=== PATIENT | male | born 1965 | race Caucasian/White ===

== ENCOUNTER → 2016-12-31 | Outpatient (REF) | payer BC ==
[~2016-12-31] MED LIST: PERC5TAB6 PO; TAMS0.4C2 PO
== END ==
LOC: M SFHCLERA 09:38
PROVIDERS: ATTEND Nurse Practitioner Family
DX: R53.81 Other malaise (principal)

== ENCOUNTER → 2017-06-18 | Outpatient (REF) | payer BC ==
[~2017-06-18] MED LIST changes: +PERC5TAB12 PO; -PERC5TAB6 PO
[2017-06-18 12:03] LABS: MEAN CORPUSCULAR HEMOGLOBIN 32.8 pg (27.0-33.0); MEAN CORPUSCULAR HGB CONC 34.4 g/dl (32.0-36.5); MEAN CORPUSCULAR VOLUME 95.4 fl (80.0-96.0); RED CELL DISTRIBUTION WIDTH 12.5 % (11.5-14.5); WHITE BLOOD COUNT 7.8 K/mm3 (4.0-10.0)
[2017-06-18 12:16] LABS: ALBUMIN 3.6 GM/DL (3.2-5.2); ALBUMIN/GLOBULIN RATIO 1.03 (1.00-1.93); ALKALINE PHOSPHATASE 87 U/L (45-117); ALT/SGPT 25 U/L (12-78); ANION GAP 9 MEQ/L (8-16); AST/SGOT 21 U/L (15-37); BILIRUBIN,TOTAL 0.7 MG/DL (0.2-1.0); BLOOD UREA NITROGEN 18 MG/DL (7-18); CALCIUM LEVEL 8.3 MG/DL (8.5-10.1); CARBON DIOXIDE LEVEL 26 MEQ/L (21-32); CHLORIDE LEVEL 106 MEQ/L (98-107); CHOLESTEROL LEVEL 164 MG/DL (<200); CREATININE FOR GFR 0.81 MG/DL (0.70-1.30); FREE T4 1.19 NG/DL (0.76-1.46); GLOMERULAR FILTRATION RATE > 60.0 (>56); GLUCOSE, FASTING 94 MG/DL (70-105); POTASSIUM SERUM 4.6 MEQ/L (3.5-5.1); SODIUM LEVEL 141 MEQ/L (136-145); TOTAL PROTEIN 7.1 GM/DL (6.4-8.2); TRIGLYCERIDES LEVEL 53 MG/DL (<150)
== END ==
LOC: M SFHCLERA 08:19
PROVIDERS: ATTEND Family Medicine
DX: R53.83 Other fatigue (principal); Z13.1 Encounter for screening for diabetes mellitus; Z13.220 Encounter for screening for lipoid disorders; Z12.5 Encounter for screening for malignant neoplasm of prostate
CPT/HCPCS: 80053; 80061; 83036; 84439; 84443; 85027; G0103

== ENCOUNTER 2017-08-24 09:11 | Outpatient (CLI) | payer BC ==
[~2017-08-24] VITALS: Ht 175.3 cm; Wt 90.7 kg
[2017-08-24] MEDS ORDERED: NS 1,000 ML IV SCH (10:15)
[2017-08-24] MEDS ORDERED: PROPOFOL 200 MG/20 ML VIAL As Ordered ONE ×2 (11:05→11:08)
--- NOTE | 2017-08-24 11:22 | ROOR ---
Patient Name: Florin Spivey Procedure Date: 08/24/2017 10:57 AM Date of : 1965 Age: 51 Room: [facility] Gender: Male Note Status: Finalized Procedure: Colonoscopy Indications: Screening for colorectal malignant neoplasm Providers: Trae Marrero MD Referring MD: Jeniffer MCLEAN MD Requesting Provider: Medicines: Monitored Anesthesia Care Complications: No immediate complications. Procedure: Pre-Anesthesia Assessment: - Prior to the procedure, a History and Physical was performed, and patient medications and allergies were reviewed. The patient is competent. The risks and benefits of the procedure and the sedation options and risks were discussed with the patient. All questions were answered and informed consent was obtained. Patient identification and proposed procedure were verified by the physician, the nurse and the gimp tacker in the procedure room. Mental Status Examination: alert and oriented. Airway Examination: normal oropharyngeal airway and neck mobility. Respiratory Examination: clear to auscultation. CV Examination: normal. Prophylactic Antibiotics: The patient does not require prophylactic antibiotics. Prior Anticoagulants: The patient has taken no previous anticoagulant or antiplatelet agents. ASA Grade Assessment: I - A normal, healthy patient. After reviewing the risks and benefits, the patient was deemed in satisfactory condition to undergo the procedure. The anesthesia plan was to use monitored anesthesia care (MAC). Immediately prior to administration of medications, the patient was re-assessed for adequacy to receive sedatives. The heart rate, respiratory rate, oxygen saturations, blood pressure, adequacy of pulmonary ventilation, and response to care were monitored throughout the procedure. The physical status of the patient was re-assessed after the procedure. The Colonoscope was introduced through the anus and advanced to the terminal ileum, with identification of the appendiceal orifice and IC valve. The colonoscopy was performed without difficulty. The patient tolerated the procedure well. The quality of the bowel preparation was good. The terminal ileum, ileocecal valve, appendiceal orifice, and rectum were photographed. Scope insertion time was 2 minutes. Scope withdrawal time was 10 minutes. The total duration of the procedure was 14 minutes. Findings: The perianal and digital rectal examinations were normal. The terminal ileum appeared normal. Two sessile polyps were found in the transverse colon. The polyps were 3 to 4 mm in size. These polyps were removed with a jumbo cold forceps. Resection and retrieval were complete. Verification of patient identification for the specimen was done by the physician and nurse using the patient's name, date and medical record number. Estimated blood loss was minimal. Non-bleeding external and internal hemorrhoids were found during retroflexion. The hemorrhoids were medium-sized. Impression: - The examined portion of the ileum was normal. - Two 3 to 4 mm polyps in the transverse colon, removed with a jumbo cold forceps. Resected and retrieved. - Non-bleeding external and internal hemorrhoids. Recommendation: - Patient has a contact number available for emergencies. The signs and symptoms of potential delayed complications were discussed with the patient. Return to normal activities tomorrow. Written discharge instructions were provided to the patient. - Resume previous diet. - Continue present medications. - Await pathology results. - Repeat colonoscopy in 5-10 years for surveillance based on pathology results. - Telephone GI clinic for pathology results in 1 week. - Return to primary care physician. rTae Marrero MD Trae Marrero MD 08/24/2017 11:22:32 AM This report has been signed electronically. Number of Addenda: 0 Note Initiated On: 08/24/2017 10:57 AM Estimated Blood Loss: Estimated blood loss was minimal.
[2017-08-24 11:49] VITALS: BP 116/76
== END 2017-08-24 11:50 | disposition home or self-care (01) ==
LOC: M OPP 09:11
PROVIDERS: ATTEND Internal Medicine Gastroenterology
DX: Z12.11 Encounter for screening for malignant neoplasm of colon (principal); K63.5 Polyp of colon; K64.8 Other hemorrhoids; K64.4 Residual hemorrhoidal skin tags; Z87.442 Personal history of urinary calculi; Z80.0 Family history of malignant neoplasm of digestive organs; Z80.42 Family history of malignant neoplasm of prostate

== ENCOUNTER → 2017-12-20 | Outpatient (REF) | payer BC ==
[2017-12-20 13:43] LABS: INFLUENZA A AMPLIFICATION POSITIVE (NEGATIVE); INFLUENZA B AMPLIFICATION NEGATIVE (NEGATIVE)
== END ==
LOC: M SFHCLERA 09:26
DX: J02.9 Acute pharyngitis, unspecified (principal)
CPT/HCPCS: 87502

== ENCOUNTER → 2018-12-17 | Outpatient (REF) | payer BC ==
[2018-12-17 12:09] LABS: BASO % 0.2 % (0.0-1.0); EOS # 0.1 10^3/uL (0.0-0.50); EOS % 1.4 % (0.0-3.0); HEMATOCRIT 43.6 % (42.0-52.0); HEMOGLOBIN 15.2 g/dl (13.5-17.5); LYMPH # 1.6 10^3/uL (1.5-4.5); LYMPH % 17.8 % (24.0-44.0); MEAN CORPUSCULAR HEMOGLOBIN 32.9 pg (27.0-33.0); MEAN CORPUSCULAR HGB CONC 34.9 g/dl (32.0-36.5); MEAN CORPUSCULAR VOLUME 94.4 fl (80.0-96.0); MONO # 0.8 10^3/uL (0.0-0.8); MONO % 8.7 % (0.0-5.0); NEUTROPHILS # 6.2 10^3/uL (1.8-7.7); NEUTROPHILS % 71.6 % (36.0-66.0); PLATELET COUNT, AUTOMATED 242 10^3/uL (150-450); RED BLOOD COUNT 4.62 10^6/uL (4.30-6.10); WHITE BLOOD COUNT 8.7 10^3/uL (4.0-10.0)
[2018-12-17 12:24] LABS: ALBUMIN 3.8 GM/DL (3.2-5.2); ALT/SGPT 36 U/L (12-78); BILIRUBIN,TOTAL 0.7 MG/DL (0.2-1.0); BLOOD UREA NITROGEN 21 MG/DL (7-18); CALCIUM LEVEL 9.1 MG/DL (8.5-10.1); CARBON DIOXIDE LEVEL 29 MEQ/L (21-32); CHLORIDE LEVEL 105 MEQ/L (98-107); CREATININE FOR GFR 0.95 MG/DL (0.70-1.30); GLOMERULAR FILTRATION RATE > 60.0 (>56); GLUCOSE, FASTING 97 MG/DL (70-100); POTASSIUM SERUM 4.3 MEQ/L (3.5-5.1); SODIUM LEVEL 140 MEQ/L (136-145); TOTAL PROTEIN 7.1 GM/DL (6.4-8.2)
[2018-12-17 22:29] LABS: CHLAMYDIA DNA AMPLIFICATION NEGATIVE (NEGATIVE); GC DNA AMPLIFICATION NEGATIVE (NEGATIVE)
== END ==
LOC: M SFHCLERA 09:58
PROVIDERS: ATTEND Nurse Practitioner Family
DX: R30.0 Dysuria (principal)
CPT/HCPCS: 80053; 85025; 87086; 87491; 87591; G0103

== ENCOUNTER → 2018-12-24 | Outpatient (REF) | payer BC ==
[2018-12-24 11:49] LABS: APPEARANCE, URINE CLEAR (CLEAR); BACTERIA, URINE AUTO NEGATIVE (NEGATIVE); BILIRUBIN, URINE AUTO NEGATIVE (NEGATIVE); BLOOD, URINE BLOOD 1+ (NEGATIVE); COLOR, URINE YELLOW (YELLOW); GLUCOSE, URINE (UA) AUTO NEGATIVE (NEGATIVE); KETONE, URINE AUTO NEGATIVE (NEGATIVE); LEUKOCYTE ESTERASE, URINE AUTO NEGATIVE (NEGATIVE); MUCUS, URINE SMALL (NEGATIVE); NITRITE, URINE AUTO NEGATIVE (NEGATIVE); PROTEIN, URINE AUTO NEGATIVE (NEGATIVE); RBC, URINE AUTO 1 /HPF (0-3); SPECIFIC GRAVITY URINE AUTO 1.024 (1.002-1.035); SQUAMOUS EPITHELIAL CELL UR AU 0 /HPF (0-6); UROBILINOGEN, URINE AUTO 0.2 mg/dL (0.0-2.0); WBC, URINE AUTO 1 /HPF (0-3)
== END ==
LOC: M SFHCLERA 09:00
PROVIDERS: ATTEND Family Medicine
DX: N41.9 Inflammatory disease of prostate, unspecified (principal)

== ENCOUNTER → 2019-03-18 | Outpatient (REF) | payer BC ==
[2019-03-18 11:26] LABS: BASO % 0.3 % (0.0-1.0); EOS # 0.1 10^3/uL (0.0-0.50); EOS % 0.7 % (0.0-3.0); HEMATOCRIT 43.4 % (42.0-52.0); LYMPH # 1.8 10^3/uL (1.5-4.5); LYMPH % 18.7 % (24.0-44.0); MEAN CORPUSCULAR HEMOGLOBIN 32.3 pg (27.0-33.0); MEAN CORPUSCULAR HGB CONC 34.6 g/dl (32.0-36.5); MEAN CORPUSCULAR VOLUME 93.3 fl (80.0-96.0); MONO # 0.9 10^3/uL (0.0-0.8); MONO % 9.1 % (0.0-5.0); NEUTROPHILS # 6.7 10^3/uL (1.8-7.7); NEUTROPHILS % 70.9 % (36.0-66.0); PLATELET COUNT, AUTOMATED 232 10^3/uL (150-450); RED BLOOD COUNT 4.65 10^6/uL (4.30-6.10); WHITE BLOOD COUNT 9.5 10^3/uL (4.0-10.0)
[2019-03-18 11:52] LABS: ERYTHROCYTE SEDIMENTATION RATE 16 mm/hr (0-20)
[2019-03-18 12:01] LABS: ALBUMIN 4.1 GM/DL (3.2-5.2); ALT/SGPT 28 U/L (12-78); BILIRUBIN,TOTAL 0.9 MG/DL (0.2-1.0); BLOOD UREA NITROGEN 27 MG/DL (7-18); C REACTIVE PROTEIN QUANTITATIV 0.49 MG/DL (0.00-0.30); CALCIUM LEVEL 9.1 MG/DL (8.5-10.1); CARBON DIOXIDE LEVEL 26 MEQ/L (21-32); CHLORIDE LEVEL 110 MEQ/L (98-107); CREATININE FOR GFR 1.05 MG/DL (0.70-1.30); GLOMERULAR FILTRATION RATE > 60.0 (>56); GLUCOSE, FASTING 101 MG/DL (70-100); POTASSIUM SERUM 4.2 MEQ/L (3.5-5.1); SODIUM LEVEL 142 MEQ/L (136-145); TOTAL PROTEIN 7.4 GM/DL (6.4-8.2)
[2019-03-18 12:06] LABS: FOLATE 20.6 NG/ML; VITAMIN B12 LEVEL 642 PG/ML
[2019-03-21 00:07] LABS: Lyme Disease IgG Ab 18 kDa Ban Absent (.); Lyme Disease IgG Ab 23 kDa Ban Absent (.); Lyme Disease IgG Ab 28 kDa Ban Absent (.); Lyme Disease IgG Ab 30 kDa Ban Absent (.); Lyme Disease IgG Ab 39 kDa Ban Absent (.); Lyme Disease IgG Ab 41 kDa Ban Absent (.); Lyme Disease IgG Ab 45 kDa Ban Absent (.); Lyme Disease IgG Ab 58 kDa Ban Absent (.); Lyme Disease IgG Ab 66 kDa Ban Absent (.); Lyme Disease IgG Ab 93 kDa Ban Absent (.); Lyme Disease IgG West Blot Int Negative (.); Lyme Disease IgG/IgM Antibodie 1.16 ISR (0.00-0.90); Lyme Disease IgM Ab 23 kDa Ban Present (.); Lyme Disease IgM Ab 39 kDa Ban Present (.); Lyme Disease IgM Ab 41 kDa Ban Absent (.); Lyme Disease IgM Ab Quantitati <0.80 index (0.00-0.79); Lyme Disease IgM West Blot Int Positive (.)
== END ==
LOC: M SFHCLERA 09:58
PROVIDERS: ATTEND Family Medicine
DX: G62.9 Polyneuropathy, unspecified (principal)

== ENCOUNTER → 2019-06-13 | Outpatient (REF) | payer BC ==
[2019-06-15 00:06] LABS: Lyme Disease IgG/IgM Antibodie <0.91 ISR (0.00-0.90); Lyme Disease IgM Ab Quantitati <0.80 index (0.00-0.79)
== END ==
LOC: M SFHCLERA 08:45
PROVIDERS: ATTEND Nurse Practitioner Family
DX: A69.20 Lyme disease, unspecified (principal)

== ENCOUNTER → 2019-11-25 | Outpatient (REF) | payer BC ==
[2019-11-25 12:10] LABS: ALBUMIN 3.7 GM/DL (3.2-5.2); ALT/SGPT 26 U/L (12-78); BILIRUBIN,TOTAL 0.7 MG/DL (0.2-1.0); BLOOD UREA NITROGEN 19 MG/DL (7-18); C REACTIVE PROTEIN QUANTITATIV < 0.30 MG/DL (0.00-0.30); CALCIUM LEVEL 8.8 MG/DL (8.5-10.1); CARBON DIOXIDE LEVEL 27 MEQ/L (21-32); CHLORIDE LEVEL 109 MEQ/L (98-107); CREATININE FOR GFR 0.85 MG/DL (0.70-1.30); FREE T4 1.16 NG/DL (0.76-1.46); GLOMERULAR FILTRATION RATE > 60.0 (>56); GLUCOSE, FASTING 96 MG/DL (70-100); POTASSIUM SERUM 4.5 MEQ/L (3.5-5.1); SODIUM LEVEL 142 MEQ/L (136-145); TOTAL PROTEIN 7.4 GM/DL (6.4-8.2)
[2019-11-25 14:38] LABS: HEMOGLOBIN A1c 5.5 %
[2019-11-27 00:08] LABS: ANA (HEP2) Negative (.); Lyme Disease IgG/IgM Antibodie <0.91 ISR (0.00-0.90); Lyme Disease IgM Ab Quantitati <0.80 index (0.00-0.79)
[2019-11-27 12:00] LABS: ALBUMIN % 55.4 % (55.8-66.1); ALPHA-1-GLOBULIN % 4.3 % (2.9-4.9); ALPHA-1-GLOBULINS 0.32 GM/DL (0.17-0.41); ALPHA-2-GLOBULINS 0.84 GM/DL (0.42-0.99); ALPHA-2-GLOBULINS % 11.3 % (7.1-11.8); BETA-1-GLOBULINS 0.41 GM/DL (0.28-0.60); BETA-1-GLOBULINS % 5.6 % (4.7-7.2); BETA-2-GLOBULINS 0.51 GM/DL (0.19-0.55); BETA-2-GLOBULINS % 6.9 % (3.2-6.5); GAMMA GLOBULIN % 16.5 % (11.1-18.8); GAMMA GLOBULINS 1.22 GM/DL (0.65-1.58)
== END ==
LOC: M SFHCLERA 08:30
PROVIDERS: ATTEND Family Medicine
DX: R20.2 Paresthesia of skin (principal); N40.0 Benign prostatic hyperplasia without lower urinary tract symptoms

== ENCOUNTER → 2019-12-05 | Outpatient (CLI) | payer BC ==
[2019-12-05 18:16] LABS: RHEUMATOID FACTOR QUANT < 10.0 IU/ML (<15.0)
[2019-12-05 18:17] LABS: FOLATE 17.6 NG/ML (>5.4)
[2019-12-05 18:27] LABS: VITAMIN B12 LEVEL 733 PG/ML (247-911)
[2019-12-09 08:06] LABS: IgG P18 AB Absent (.); IgG P23 AB Absent (.); IgG P28 AB Absent (.); IgG P30 AB Absent (.); IgG P39 AB Absent (.); IgG P41 AB Absent (.); IgG P45 AB Absent (.); IgG P66 AB Absent (.); IgG P93 AB Absent (.); IgM P23 AB Present (.); IgM P39 AB Present (.); IgM P41 AB Absent (.); LYME IgG WB INTERPRETATION Negative (.); LYME IgM WB INTERPRETATION Positive (.)
[2019-12-09 11:00] LABS: DRVV SCREEN 40.6 SEC
[2019-12-09 11:09] LABS: PTT LUPUS TYPE ANTICOAG SCREEN 1.1 (0-1.2)
== END ==
LOC: M LRY 11:02
PROVIDERS: ATTEND Psychiatry & Neurology Neurology
DX: M54.2 Cervicalgia (principal); M54.5 Low back pain; R20.0 Anesthesia of skin

== ENCOUNTER → 2019-12-17 | Outpatient (CLI) | payer BC | LOC: M LRY 08:03 | PROVIDERS: ATTEND Family Medicine | DX: G57.12 Meralgia paresthetica, left lower limb (principal); Z53.9 Procedure and treatment not carried out, unspecified reason ==

== ENCOUNTER → 2020-12-21 | Outpatient (REF) | payer BC | LOC: M SFHCLERA 08:50 | PROVIDERS: ATTEND Nurse Practitioner Family | DX: R10.9 Unspecified abdominal pain (principal) ==

== ENCOUNTER → 2020-12-21 | Outpatient (CLI) | payer BC ==
--- NOTE | 2020-12-21 09:56 | REP ---
INDICATION: RIGHT FLANK PAIN AND BURNING COMPARISON: None. TECHNIQUE: AP, lateral, and swimmers views. FINDINGS: Alignment and kyphosis is maintained. Vertebral bodies intact. No acute fracture / compression injury or subluxation. Osteopenia and mild age-related changes are suggested including minimal disc space narrowing and subtle scattered marginal spurring. IMPRESSION: Mild osteopenia and age-related changes. No acute fracture/compression injury or subluxation. <Electronically signed by Kelechi Fabian > 12/21/20 0953
[2020-12-21 13:47] LABS: ALBUMIN 3.8 GM/DL (3.2-5.2); ALT/SGPT 26 U/L (12-78); BILIRUBIN,TOTAL 1.2 MG/DL (0.2-1.0); BLOOD UREA NITROGEN 19 MG/DL (7-18); CALCIUM LEVEL 9.2 MG/DL (8.5-10.1); CARBON DIOXIDE LEVEL 30 MEQ/L (21-32); CHLORIDE LEVEL 108 MEQ/L (98-107); CREATININE FOR GFR 0.93 MG/DL (0.70-1.30); GLOMERULAR FILTRATION RATE > 60.0 (>56); GLUCOSE, FASTING 92 MG/DL (70-100); POTASSIUM SERUM 4.1 MEQ/L (3.5-5.1); SODIUM LEVEL 144 MEQ/L (136-145); TOTAL PROTEIN 7.6 GM/DL (6.4-8.2)
[2020-12-21 15:25] LABS: BASO % 0.4 % (0.0-1.0); EOS # 0.1 10^3/uL (0.0-0.5); HEMATOCRIT 46.9 % (42.0-52.0); HEMOGLOBIN 15.2 g/dl (13.5-17.5); LYMPH # 1.5 10^3/uL (1.5-5.0); LYMPH % 20.9 % (24.0-44.0); MEAN CORPUSCULAR HEMOGLOBIN 31.4 pg (27.0-33.0); MEAN CORPUSCULAR HGB CONC 32.4 g/dl (32.0-36.5); MEAN CORPUSCULAR VOLUME 96.9 fl (80.0-96.0); MONO # 0.6 10^3/uL (0.0-0.8); NEUTROPHILS # 5.1 10^3/uL (1.5-8.5); NEUTROPHILS % 69.4 % (36.0-66.0); PLATELET COUNT, AUTOMATED 228 10^3/uL (150-450); RED BLOOD COUNT 4.84 10^6/uL (4.30-6.10); WHITE BLOOD COUNT 7.4 10^3/uL (4.0-10.0)
== END ==
LOC: M WUC 09:29
PROVIDERS: ATTEND Nurse Practitioner Family
DX: R31.9 Hematuria, unspecified (principal); R10.9 Unspecified abdominal pain; M85.88 Other specified disorders of bone density and structure, other site
CPT/HCPCS: 36415; 72072; 80053; 85025; G0103

== ENCOUNTER → 2020-12-22 | Outpatient (CLI) | payer BC ==
--- NOTE | 2020-12-22 08:08 | REP ---
INDICATION: FLANK PAIN, HEMATURIA COMPARISON: None TECHNIQUE: Real time santiago scale ultrasound examination using curved array transducer. FINDINGS: Kidneys are normal in reniform shape and demonstrate increased central sinus fat. Small nonobstructing intrarenal calculi and or renovascular calcifications cannot be excluded or differentiated. No hydronephrosis or obvious large nephroliths. No cystic or renal mass lesion. Right kidney measures 12.4 x 7.0 x 5.8 cm. Left kidney measures 11.8 x 5.7 x 6.0 cm. Bladder is unremarkable. IMPRESSION: 1. Cannot exclude small intrarenal calculi versus renal vascular calcifications. 2. No hydronephrosis or obvious significant nephroliths identified. <Electronically signed by Kelechi Fabian > 12/22/20 0818
== END ==
LOC: M RAD 06:33
PROVIDERS: ATTEND Nurse Practitioner Family
DX: R10.9 Unspecified abdominal pain (principal); R31.9 Hematuria, unspecified

== ENCOUNTER → 2020-12-28 | Outpatient (REF) | payer BC ==
[2020-12-29 16:12] LABS: APPEARANCE, URINE CLEAR (CLEAR); BACTERIA, URINE AUTO NEGATIVE (NEGATIVE); BILIRUBIN, URINE AUTO NEGATIVE (NEGATIVE); BLOOD, URINE BLOOD NEGATIVE (NEGATIVE); COLOR, URINE YELLOW (YELLOW); GLUCOSE, URINE (UA) AUTO NEGATIVE (NEGATIVE); KETONE, URINE AUTO NEGATIVE (NEGATIVE); LEUKOCYTE ESTERASE, URINE AUTO NEGATIVE (NEGATIVE); MUCUS, URINE SMALL (NEGATIVE); NITRITE, URINE AUTO NEGATIVE (NEGATIVE); PROTEIN, URINE AUTO NEGATIVE (NEGATIVE); RBC, URINE AUTO 2 /HPF (0-3); SPECIFIC GRAVITY URINE AUTO 1.012 (1.002-1.035); SQUAMOUS EPITHELIAL CELL UR AU 0 /HPF (0-6); UROBILINOGEN, URINE AUTO 0.2 mg/dL (0.0-2.0); WBC, URINE AUTO 0 /HPF (0-3)
== END ==
LOC: M SFHCLERA 15:31
PROVIDERS: ATTEND Family Medicine
DX: R31.1 Benign essential microscopic hematuria (principal)

== ENCOUNTER → 2021-01-19 | Outpatient (CLI) | payer BC ==
--- NOTE | 2021-01-19 11:00 | REP ---
INDICATION: SOB, TENDINITIS OF RIGHT ROTATOR CUFF COMPARISON: None. TECHNIQUE: PA and lateral. FINDINGS: The mediastinum and cardiac silhouette are normal. The lung ayon are clear and without acute consolidation, effusion, or pneumothorax. The skeletal structures are intact and normal. IMPRESSION: No acute cardiopulmonary process. <Electronically signed by Kelechi Fabian > 01/19/21 1059
--- NOTE | 2021-01-19 11:01 | REP ---
INDICATION: SOB, TENDINITIS OF RIGHT ROTATOR CUFF COMPARISON: None. TECHNIQUE: Internal rotation, external rotation, and Y view. FINDINGS: There is generalized osteopenia and advanced degenerative changes primarily involving the proximal humerus and glenoid rim. Acute versus chronic fracture at the proximal humeral surgical neck and/or bulky osteophyte cannot be differentiated and should be correlated clinically. IMPRESSION: Generalized osteopenia and advanced degenerative changes to the glenohumeral joint. Possible acute versus old fracture through the humeral metaphysis/surgical neck requires correlation. <Electronically signed by Kelechi Fabian > 01/19/21 6850
== END ==
LOC: M WUC 10:20
PROVIDERS: ATTEND Family Medicine
DX: M19.011 Primary osteoarthritis, right shoulder (principal); R06.02 Shortness of breath

== ENCOUNTER → 2021-02-09 | Outpatient (CLI) | payer BC ==
--- NOTE | 2021-02-09 15:07 | PFTRPT ---
Height: 69.00 Inches Weight: 210.00 Lbs BSA: 2.11 Diagnosis: R06.02 DATE: 02/09/2021 ORDERING PHYSICIAN: Jeniffer Mckay MD Pre and post bronchodilator studies have excellent technical quality. Forced vital capacity is normal. FEV1 is in proportion. Obstructive index is therefore normal. Expiratory limit of the flow-volume loop is normal. No significant bronchodilator response is identified. Total lung capacity is normal. Residual volume is in proportion. Diffusing capacity is normal. No hemoglobin available for correction. Airway resistance and conductance are normal. IMPRESSION: Essentially normal study. MTDD
== END ==
LOC: M CARPUL 14:18
PROVIDERS: ATTEND Family Medicine
DX: R06.02 Shortness of breath (principal)

== ENCOUNTER → 2021-06-11 | Outpatient (REF) | payer BC | LOC: M WUC 17:16 | PROVIDERS: ATTEND Physician Assistant | DX: J02.9 Acute pharyngitis, unspecified (principal) ==

== ENCOUNTER 2021-09-13 05:04 | Emergency (ER) | payer BC ==
[~2021-09-13] VITALS: Ht 175.3 cm; Wt 98.2 kg
--- OUTSIDE RECORDS SUMMARY | 2021-09-13 05:08 | CCD ---
Author Author [facility] Organization [facility] Address Unknown Phone Unavailable Care Team Providers Care Disease Case Manager Name Role Phone Em Mckee Unavailable PROBLEMS Type Condition ICD9-CM Code NYM91-YX Code Onset Dates Condition S tatus W/U Status Risk SNOMED Code Notes Problem Kidney stone N20.0 Active confirmed 6771708 7 Problem Other obesity due to excess calories E66.09 Act collin confirmed 666815060 Problem Body mass index (BMI) of 30.0-30.9 in adult Z68.30 Active confirmed 741693381 Problem Neuropathy G62.9 Active confirmed 839306895 Problem Family hx of prostate cancer Z80.42 Active confirme d 143734064 Problem Seasonal allergies J30.2 Active confirmed 4 62824007 Problem Meralgia paresthetica of left side G57.12 Activ e confirmed 43005877 Problem Benign prostatic hyperplasia without lower urina ry tract symptoms N40.0 Active confirmed 858687313 Problem Paresthesia of skin R20.2 Active confirmed 28361397 Problem Adjustment disorder with anxious mood F43.22 Ac tive confirmed 26021818 ALLERGIES No Known Allergies ENCOUNTERS from 1965 to 2021-06-22 Encounter Location Date Provider Diagnosis [facility] [id number] [facility] [phone] [place] Esc[place]illa [phone] Jun, Em Mckee Seasonal allergies J30.2 IMMUNIZATIONS Vaccine Route Administration Date Status Influenza 18 yrs & older Flublok IM Intramuscular Dec 19, 2018 Administered TDAP 0.5mL (Boostrix) IM Intramuscular February 22, 2019 Administe red Influenza 6mo & up Fluzone Unknown Dec 20, 2017 Other s SOCIAL HISTORY Tobacco Use: Social History Observation Description Date Details (start date - stop date) Never Smoker Sex Assigned At : Social History Observation Description Sex Assigned At Unknown Education: Question Answer Notes Level of Education: High School Audit Question Answer Notes Total Score: 7 Interpretation: Alcohol Education Domestic Violence: Question Answer Notes Status: Drug and Alcohol Question Answer Notes Total Score: 0 Interpretation: No problems reported BMI Care Goal Follow-Up Question Answer Notes Above Normal BMI Follow-Up Dietary management educatio n, guidance, and counseling Tobacco Use: Question Answer Notes Are you a: never smoker REASON FOR REFERRAL No Information VITAL SIGNS Weight 214 lbs Jun, Weight-kg 97.07 kg Jun, Height 69 in Jun, BMI 31.60 kg/m2 Jun, Heart Rate 80 /min Jun, Respiratory Rate 16 /min Jun, Temperature 97.8 degrees Fahrenheit Jun, Oximetry 98 Jun, Blood pressure systolic 116 mm Hg Jun, Blood pressure diastolic 80 mm Hg Jun, MEDICATIONS Medication SIG (Take, Route, Frequency, Duration) Notes Start Da te End Date Status Gabapentin 300 MG 1 capsule Orally TID Not-Taking Loratadine 10 MG 1 tablet Orally Once a day for 30 day(s) Jun, Active Ibuprofen 200 MG 1 tablet with food or milk as needed Ora lly Three times a day Active Flonase Allergy Relief 50 MCG/ACT 1 spray in each nost ril Nasally Once a day for 30 day(s) Active PROCEDURES No Information RESULTS No Results REASON FOR VISIT [facility] MEDICAL (GENERAL) HISTORY Type Description Date Medical History Kidney Stone Surgical History left ankle around 20 years ago Surgical History Left ESW[facility] 04/20/16 Hospitalization History concussion high school Goals Section No Information Health Concerns No Information MEDICAL EQUIPMENT No Information MENTAL STATUS No Information FUNCTIONAL STATUS No Information ASSESSMENTS Encounter Date Diagnosis Assessment Notes Treatment Notes Treatm ent Clinical Notes Jun, Seasonal allergies (ICD-10 - J30.2) Pt reports a mild sore throat that comes and goes for the past 5-6 weeks. Denies any associated difficulty swallowing, globus sensation, unexpected weight loss, cough, shortness of breath, or fevers. He reports also occasionally discomfort in both ears. Suspect that symptoms are likely due to allergies. Advised continued use of Flonase along with loratadine once daily, and follow-up in 1 month if symptoms have not improved. Patient expressed understanding and agreed with plan. Recent COVID test, Strep test, chest x-ray and PFT studies were normal. PLAN OF TREATMENT Medication Medication Name Sig Start Date Stop Date Loratadine 10 MG 1 tablet Orally Once a day for 30 day(s) Jun Treatment Notes Assessment Notes Clinical Notes Seasonal allergies Pt reports a mild so re throat that comes and goes for the past 5-6 weeks. Denies any associated difficulty swallowing, globus sensation, unexpected weight loss, cough, shortness of breath, or fevers. He reports also occasionally discomfort in both ears. Suspect that symptoms are likely due to allergies. Advised continued use of Flonase along with loratadine once daily, and follow-up in 1 month if symptoms have not improved. Patient expressed understanding and agreed with plan. Recent COVID test, Strep test, chest x-ray and PFT studies were normal. Next Appt Details 4 Weeks Reason:f/u sore throat Provider Name:Emleah Meyerson, 2021-07-22 07:30:00 AM, [address] [facility], , [place], [address], Follow Up:4 Weeksf/u sore throat Insurance Providers Payer Name Payer Address Payer Phone Insured Name Patient Relati onship to Insured Coverage Start Date Coverage End Date KAILEE DE LA TORRE PPO [id number] [facility] [id number] [place] self
--- OUTSIDE RECORDS SUMMARY | 2021-09-13 05:08 | CCD ---
Author Author [facility] Organization [facility] Address Unknown Phone Unavailable Care Team Providers Care Podiatry Assistant Name Role Phone Frank Loomis Unavailable Unavailable VladislavFrank ramsey Unavailable Unavailable VladislavFrank ramsey Unavailable Unavailable VladislavFrank ramsey Unavailable Unavailable Frank Loomis Unavailable Unavailable Frank Loomis Unavailable Unavailable Frank Loomis Unavailable Unavailable Frank Loomis Unavailable Unavailable VladislavFrank ramsey Unavailable Unavailable VladislavFarnk ramsey Unavailable Unavailable VladislavFrank ramsey Unavailable Unavailable VladislavFrank ramsey Unavailable Unavailable VladislavFrank ramsey Unavailable Unavailable Frank Loomis Unavailable Unavailable Frank Loomis Unavailable Unavailable VladislavFrank ramsey Unavailable Unavailable VladislavFrank ramsey Unavailable Unavailable VladislavFrank ramsey Unavailable Unavailable VladislavFrank ramsey Unavailable Unavailable VladislavFrank ramsey Unavailable Unavailable VladislavFrank ramsey Unavailable Unavailable VladislavFrank ramsey Unavailable Unavailable VladislavFrank ramsey Unavailable Unavailable VladislavFrank ramsey Unavailable Unavailable VladislavFrank ramsey Unavailable Unavailable VladislavFrank ramsey Unavailable Unavailable Vladislav, Chastity HEAD Unavailable Unavailable Vladislav, Chastity MD Unavailable Unavailable Vladislav, Chastity MD Unavailable Unavailable Vladislav, Chastity MD Unavailable Unavailable Vladislav, Chastity MD Unavailable Unavailable Vladislav, Chastity MD Unavailable Unavailable Vladislav, Chastity MD Unavailable Unavailable Vladislav, Chastity MD Unavailable Unavailable Vladislav, Chastity MD Unavailable Unavailable Vladislav, Chastity MD Unavailable Unavailable Vladislav, Chastity MD Unavailable Unavailable Vladislav, Chastity MD Unavailable Unavailable Vladislav, Chastity MD Unavailable Unavailable Vladislav, Chastity MD Unavailable Unavailable Vladislav, Chastity MD Unavailable Unavailable Vladislav, Chastity MD Unavailable Unavailable Vladislav, Chastity MD Unavailable Unavailable Vladislav, Chastity MD Unavailable Unavailable Vladislav, Chastity MD Unavailable Unavailable Vladislav, Chastity MD Unavailable Unavailable Vladislav, Chastity MD Unavailable Unavailable Vladislav, Chastity MD Unavailable Unavailable Vladislav, Chastity MD Unavailable Unavailable Vladislav, Chastity MD Unavailable Unavailable Vladislav, Chastity MD Unavailable Unavailable Vladislav, Chastity MD Unavailable Unavailable Vladislav, Chastity MD Unavailable Unavailable Vladislav, Chastity MD Unavailable Unavailable Vladislav, Chastity MD Unavailable Unavailable Vladislav, Chastity MD Unavailable Unavailable Vladislav, Chastity MD Unavailable Unavailable Vladislav, Chastity MD Unavailable Unavailable Vladislav, Chastity MD Unavailable Unavailable Vladislav, Chastity MD Unavailable Unavailable Vladislav, Chastity MD Unavailable Unavailable Vladislav, Chastity MD Unavailable Unavailable Sharma, L Felix HEAD Unavailable Unavailable Sharma, L Felix HEAD Unavailable Unavailable Sharma, L Felix HEAD Unavailable Unavailable Sharma, L Felix HEAD Unavailable Unavailable Sharma L Felix HEAD Unavailable Unavailable SharmaNubia MD Unavailable Unavailable Sharma L Felix HEAD Unavailable Unavailable Sharma L Felix HEAD Unavailable Unavailable SharmaNubia MD Unavailable Unavailable Sharma L Felix HEAD Unavailable Unavailable Sharma L Felix HEAD Unavailable Unavailable SharmaNubia MD Unavailable Unavailable Sharma L Felix HEAD Unavailable Unavailable Sharma L Felix HEAD Unavailable Unavailable SharmaNubia MD Unavailable Unavailable Sharma L Felix HEAD Unavailable Unavailable Sharma L Felix HEAD Unavailable Unavailable SharmaNubia MD Unavailable Unavailable Sharma L Felix HEAD Unavailable Unavailable Sharma L Felix HEAD Unavailable Unavailable Sharma L Felix HEAD Unavailable Unavailable Sharma L Felix HEAD Unavailable Unavailable SharmaNubia MD Unavailable Unavailable SharmaNubia MD Unavailable Unavailable Sharma L Felix HEAD Unavailable Unavailable SharmaNubia MD Unavailable Unavailable Sharma L Felix HEAD Unavailable Unavailable Sharma Nubia Washington MD Unavailable Unavailable Sharma, L Felix MD Unavailable Unavailable Sharma, Nubia Washington MD Unavailable Unavailable Sharma, Nubia Washington MD Unavailable Unavailable Sharma, Nubia Washington MD Unavailable Unavailable Sharma, Nubia Washington MD Unavailable Unavailable Sharma, Nubia Washington MD Unavailable Unavailable Sharma, Nubia Washington MD Unavailable Unavailable Sharma, Nubia Washington MD Unavailable Unavailable Sharma, Nubia Washington MD Unavailable Unavailable Sharma, Nubia Washington MD Unavailable Unavailable Sharma, Nubia Washington MD Unavailable Unavailable Sharma, Nubia Washington MD Unavailable Unavailable Sharma, Nubia Washington MD Unavailable Unavailable Sharma, Nubia Washington MD Unavailable Unavailable Sharma, Nubia Washington MD Unavailable Unavailable Sharma, Nubia Washington MD Unavailable Unavailable Sharma, Nubia Washington MD Unavailable Unavailable Sharma, Nubia Washington MD Unavailable Unavailable Sharma, Nubia Washington MD Unavailable Unavailable Sharma, Nubia Washington MD Unavailable Unavailable Sharma, Nubia Washington MD Unavailable Unavailable Sharma, Nubia Washington MD Unavailable Unavailable MOBLEYLATRELL KAUFFMAN MD Unavailable Unavailable MOBLEYLATRELL KAUFFMAN MD Unavailable Unavailable LATRELL MOBLEY MD Unavailable Unavailable MOBLEYLATRELL OLIVA MD Unavailable Unavailable MOBLEYLATRELL OLIVA MD Unavailable Unavailable MOBLEYLATRELL OLIVA MD Unavailable Unavailable LATRELL MOBLEY MD Unavailable Unavailable MOBLEYLATRELL OLIVA MD Unavailable Unavailable LATRELL MOBLEY MD Unavailable Unavailable LATRELL MOBLEY MD Unavailable Unavailable LATRELL MOBLEY MD Unavailable Unavailable LATRELL MOBLEY MD Unavailable Unavailable MOBLEYLATRELL OLIVA MD Unavailable Unavailable LATRELL MOBLEY MD Unavailable Unavailable LATRELL MOBLEY MD Unavailable Unavailable MOBLEYLATRELL OLIVA MD Unavailable Unavailable LATRELL MOBLEY MD Unavailable Unavailable MOBLEYLATRELL OLIVA MD Unavailable Unavailable LATRELL MOBLEY MD Unavailable Unavailable LATRELL MOBLEY MD Unavailable Unavailable LATRELL MOBLEY MD Unavailable Unavailable LATRELL MOBLEY MD Unavailable Unavailable LATRELL MOBLEY MD Unavailable Unavailable LATRELL MOBLEY MD Unavailable Unavailable LARTELL MOBLEY MD Unavailable Unavailable LATRELL MOBLEY MD Unavailable Unavailable LATRELL MOBLEY MD Unavailable Unavailable LATRELL MOBLEY MD Unavailable Unavailable LATRELL MOBLEY MD Unavailable Unavailable LATRELL MOBLEY MD Unavailable Unavailable LATRELL MOBLEY MD Unavailable Unavailable LATRELL MOBLEY MD Unavailable Unavailable MOBLEYLATRELL OLIVA MD Unavailable Unavailable RING, K KELLY PA Unavailable Unavailable RING, K KELLY PA Unavailable Unavailable RING, K KELLY PA Unavailable Unavailable RING, K KELLY PA Unavailable Unavailable RING, K KELLY PA Unavailable Unavailable RING, K KELLY PA Unavailable Unavailable RING, K KELLY PA Unavailable Unavailable RING, K KELLY PA Unavailable Unavailable RING, K KELLY PA Unavailable Unavailable RING, K KELLY PA Unavailable Unavailable RING, K KELLY PA Unavailable Unavailable RING, K KELLY PA Unavailable Unavailable RING, K KELLY PA Unavailable Unavailable RING, K KELLY PA Unavailable Unavailable RING, K KELLY PA Unavailable Unavailable RING, K KELLY PA Unavailable Unavailable RING, K KELLY PA Unavailable Unavailable RING, K KELLY PA Unavailable Unavailable RING, K KELLY PA Unavailable Unavailable RING, K KELLY PA Unavailable Unavailable RING, K KELLY PA Unavailable Unavailable Re-disclosure Warning The records that you are about to access may contain information from federally-assisted alcohol or drug abuse programs. If such information is present, then the following federally mandated warning applies: This information has been disclosed to you from records protected by federal confidentiality rules (42 CFR part 2). The federal rules prohibit you from making any further disclosure of this information unless further disclosure is expressly permitted by the written consent of the person to whom it pertains or as otherwise permitted by 42 CFR part 2. A general authorization for the release of medical or other information is NOT sufficient for this purpose. The Federal rules restrict any use of the information to criminally investigate or prosecute any alcohol or drug abuse patient.The records that you are about to access may contain highly sensitive health information, the redisclosure of which is protected by Article 27-F of the [place] Public Health law. If you continue you may have access to information: Regarding HIV / AIDS; Provided by facilities licensed or operated by the [place] Office of Mental Health; or Provided by the [place] Office for People With Developmental Disabilities. If such information is present, then the following [place] [facility] mandated warning applies: This information has been disclosed to you from confidential records which are protected by state law. State law prohibits you from making any further disclosure of this information without the specific written consent of the person to whom it pertains, or as otherwise permitted by law. Any unauthorized further disclosure in violation of state law may result in a fine or custodial sentence or both. A general authorization for the release of medical or other information is NOT sufficient authorization for further disc losure. Family History Family Member Name Family Member Gender Family Member Status Date o f Status Description Data Source(s) Unknown Unknown Problem [facility] ([facility], ) father Encounters Encounter Providers Location Date Indications Data Source(s ) [place] [address] [facility] [address] 08/31/2021 12:00:00 AM EDT eCW1 ([facility]) Outpatient Attender: Felix Sharma MD ER-MOB 08/25/2021 02:54:00 AM EDT [facility] Outpatient [address] [facility] [address] [place] [address] 08/25/2021 12:00:00 AM EDT eCW1 ([facility]) Outpatient Attender: YESSENIA MOBLEY MD 08/11/2021 09:59:00 AM T [facility] Out[place] [address] [facility] [address] 07/22/2021 12:00:00 AM EDT eCW1 ([facility]) [place]patient [address] [facility] [address] 06/21/2021 12:00:00 AM EDT eCW1 ([facility]) Outpatient Attender: KELLY Newell 06/11/2021 12:30:00 PM EDT [facility] ([facility]) Office Visit Attender: Chastity Loomis MD Main office - [facility] 04/12/2021 10:30:00 AM EDT [facility] ([facility], ) [place] [address] [facility] [facility] [address] 02/11/2021 12:00:00 AM EDT eCW1 ([facility]) Outpatient [address] [facility] [place] [address] 01/18/2021 12:00:00 AM EST eCW1 ([facility]) Outpatient [address] [facility] [place] [address] 12/28/2020 12:00:00 AM EST eCW1 ([facility]) Unknown [address] [facility] [address] 12/22/2020 12:00:00 AM EST eCW1 ([facility]) [place] [address] [facility] [facility] [address] 12/21/2020 12:00:00 AM EST eCW1 ([facility]) Office Visit Attender: Chastity Loomis MD Main office - [place] 12/13/2020 10:00:00 AM EST MED[facility] ([facility]) Outpatient Attender: Chastity Loomis MD Main office - [place] 08/09/2020 11:00:00 AM EDT [facility] ([facility]) Immunizations Vaccine Date Status Description Data Source(s) COVID-19 VACCINE Moderna 03/07/2021 12:00:00 AM EDT completed [facility] Vaccine Series Complete: YESThis Data wa s Submitted to [facility]. COVID-19 VACC,MRNA(MODERNA)/PF 02/03/2021 12:00:00 AM EDT completed [facility] COVID-19 VACCINE Moderna 02/03/2021 12:00:00 AM EDT completed [facility] Vaccine Series Complete: NOThis Data was Submitted to [facility]. Medications Medication Brand Name Start Date Product Form Dose Route Admi nistrative Instructions Pharmacy Instructions Status Indications Reaction Description Data Source(s) Fluticasone propionate 0.05 MG/ACTUAT Metered Dose [facility] [place] 50 mcg/actuation FLUTICASONE PROPIONATE 08/11/2021 12:00:00 AM EDT spray,suspension 16 SPRAY ONE SPRAY IN EACH NOSTRIL ONCE DAILY SPRAY ONE SPRAY IN EACH NOSTRIL ONCE DAILY SOLD: 08/15/2021 [facility] 20 mg 08/11/2021 12:00:00 AM EDT capsule,delayed release (DR/EC) 60 TAKE ONE CAPSULE BY MOUTH 30 MINUTES BEFORE A MEAL TWO TIMES A DAY TAKE ONE CAPSULE BY MOUTH 30 MINUTES BEFORE A MEAL TWO TIMES A DAY SOLD: 08/15/2021 [facility] Loratadine 10 MG Oral Tablet Loratadine 10 MG 06/21/2021 12:00:00 A M EDT 1.0 {tablet} active Loratadine 10 MG eCW1 ( [facility]) Loratadine 10 MG Oral Tablet Loratadine 10 MG 06/21/2021 12:00:00 A M EDT 1.0 {tablet} active Loratadine 10 MG eCW1 ( [facility]) Loratadine 10 MG Oral Tablet Loratadine 10 MG 06/21/2021 12:00:00 A M EDT 1.0 {tablet} active Loratadine 10 MG eCW1 ( [facility]) Fluticasone propionate 0.05 MG/ACTUAT Metered Dose [facility] [place] 50 mcg/actuation FLUTICASONE PROPIONATE 06/11/2021 12:00:00 AM EDT spray,suspension 16 SPRAY TWO SPRAYS IN EACH NOSTRIL ONCE DAILY SPRAY TWO SPRAYS IN EACH NOSTRIL ONCE DAILY SOLD: 06/11/2021 [facility] Fluticasone Propionate Fluticasone Propionate 06/11/2021 12:00:00 AM E DT active [facility] ([facility]) No Active Medications 06/11/2021 12:00:00 AM EDT completed [facility] ([facility], [facility]) Insurance Providers Payer name Policy type / Coverage type Policy ID Covered libertarian ID Covered libertarian's relationship to jeffres Policy [place] Plan Information [employer] [place] 302/307 [id number] SP [id number] [employer] [place]/307 [id number] SP [id number] BLUE CROSS [id number] S [id number] [employer] [place] PPO 302/307 [id number] SP [id number] [facility] BCBS B [id number] S [id number] ANSI-Commercial [id number] ANSI-Commercial [id number] ANSI-Commercial [id number] ANSI-Commercial [id number] [place] [place]/307 [id number] SP [id number] ANSI-Commercial [id number] ANSI-Commercial [id number] ANSI-Commercial [id number] ANSI-Commercial [id number] ANSI-Commercial [id number] [facility] Health Maintenance Organization (HMO) [id number] Self [id number] [facility] Health Maintenance Organization (O) [id number] Self [id number] [employer] [place] 302/307 [id number] SP [id number] [employer] [place] 302/307 [id number] SP [id number] BCBS JOYCE [place] PPO 302/307 [id number] SP [id number] BC BS [place] [id number] SP [id number] [employer] [place] [id number] S [id number] Problems, Conditions, and Diagnoses Code Display Name Description Problem Type Effective Dates Data Source(s) M54.9 Dorsalgia, unspecified DORSALGIA, UNSPECIFIED Diagnosi s 08/25/2021 02:54:00 AM EDT [facility] J37.0 Chronic laryngitis CHRONIC LARYNGITIS Diagnosis 09:59:00 AM EDT [facility] G89.29 [id number] Other chronic pain Problem 08/25/2021 12:00: 00 AM EDT eCW1 ([facility]) J30.2 [id number] Seasonal allergies Problem 06/21/2021 12:00: 00 AM EDT eCW1 ([facility]) Surgeries/Procedures Procedure Description Date Indications Data Source(s) OFFICE OUTPATIENT NEW 30 MINUTES 06/11/2021 12:00:00 A M EDT [facility] ([facility]) Results ID Date Data Source [id number] 08/25/2021 10:23:00 AM EDT [facility] Exam Number: [id number] OF EXAMINATIO N: 08/25/2021 9:53 EDTHISTORY: PainTECHNIQUE: 2 views of the thoracic spine were obtained.FINDINGS:Mild dextroconvex scoliosis is noted. Bones are mildly osteopenic.Moderate degenerative changes are seen at all levels. There are nodefinite lytic or blastic lesions.IMPRESSION:Mild dextroconvex scoliosis with moderate secondary degenerativechanges.Mild osteopenia.Electronically signed in PS360 by: Anjel Smith M.D. 110:12 EDT Reported By: Alfredo SMITH M.D. Signed By: Michaela SMITH M.D. Name Value Range Interpretation Code Description Data Marce rce(s) Supporting Document(s) ID Date Data Source [id number] 06/11/2021 03:08:00 PM EDT MED[facility] ([facility]) Name Value Range Interpretation Code Description Data Marce rce(s) Supporting Document(s) Group A Strep Culture Laboratory test result MED[facility] ([facility]) FULL REPORT IN LAB NOTES (eCW and [facility] ). NEGATIVE FOR STREP PYOGENES (GROUP A) ID Date Data Source [id number] 06/11/2021 12:00:00 AM EDT [facility] Name Value Range Interpretation Code Description Data Marce rce(s) Supporting Document(s) SARS-CoV2 Rapid Antigen Negative [facility] by [facility]. ID Date Data Source UA URINALYSIS 12/28/2020 12:00:00 AM EST eCW1 ([facility]) Name Value Range Interpretation Code Description Data Marce rce(s) Supporting Document(s) Laboratory studies (set) UA URINALYS IS eCW1 ([facility]) ID Date Data Source Comprehensive Metabolic Profile (CMP) 12/21/2020 12:00:00 AM EST eCW1 ([facility]) Name Value Range Interpretation Code Description Data Marce rce(s) Supporting Document(s) 19 7-18 BLOOD UREA NITROGEN eCW1 ([facility]) 92 70-100 GLUCOSE, FASTING eCW1 ([facility]) 0.93 0.70-1.30 CREATININE FOR GFR eCW1 ([facility]) 4.1 3.5-5.1 POTASSIUM SERUM eCW1 ([facility]) > 60.0 >56 GLOMERULAR FILTRATION RATE eCW 1 ([facility]) 144 136-145 SODIUM LEVEL eCW1 ([facility] hospital) 24 7-37 AST/SGOT eCW1 ([facility]) 108 98-107 CHLORIDE LEVEL eCW1 ([facility]) 9.2 8.5-10.1 CALCIUM LEVEL eCW1 ([facility]) 30 21-32 CARBON DIOXIDE LEVEL eCW1 ([facility]) 88 45-117 ALKALINE PHOSPHATASE eCW1 ([facility]) 7.6 6.4-8.2 TOTAL PROTEIN eCW1 ([facility]) 26 12-78 ALT/SGPT eCW1 ([facility]) 1.2 0.2-1.0 BILIRUBIN,TOTAL eCW1 ([facility]) 3.8 3.2-5.2 ALBUMIN eCW1 ([facility]) 1.0 ALBUMIN/GLOBULIN RATIO eCW1 ([facility]) ID Date Data Source URINE CULTURE 12/21/2020 12:00:00 AM EST eCW1 ([facility]) Name Value Range Interpretation Code Description Data Marce rce(s) Supporting Document(s) Laboratory studies (set) URINE CULTU RE eCW1 ([facility]) ID Date Data Source CBC with Differential 12/21/2020 12:00:00 AM EST eCW1 ([facility]) Name Value Range Interpretation Code Description Data Marce rce(s) Supporting Document(s) 7.4 4.0-10.0 WHITE BLOOD COUNT eCW1 ([facility]) 46.9 42.0-52.0 HEMATOCRIT eCW1 ([facility]ending sale to [facility]) 4.84 4.30-6.10 RED BLOOD COUNT eCW1 ([facility]) 15.2 13.5-17.5 HEMOGLOBIN eCW1 ([facility]ending sale to [facility]) 96.9 80.0-96.0 MEAN CORPUSCULAR VOLUME e CW1 ([facility]) 228 150-450 PLATELET COUNT, AUTOMATED eCW1 ([facility]) 12.4 11.5-14.5 RED CELL DISTRIBUTION WID TH eCW1 ([facility]) 31.4 27.0-33.0 MEAN CORPUSCULAR HEMOGLOB IN eCW1 ([facility]) 32.4 32.0-36.5 MEAN CORPUSCULAR HGB CONC eCW1 ([facility]) 20.9 24.0-44.0 LYMPH % eCW1 ([facility]) 8.0 0.0-5.0 MONO % eCW1 ([facility]) 1.0 0.0-3.0 EOS % eCW1 ([facility]) 69.4 36.0-66.0 NEUTROPHILS % eCW1 ([facility]) 1.5 1.5-5.0 LYMPH # eCW1 ([facility]) 0.6 0.0-0.8 MONO # eCW1 ([facility]) 5.1 1.5-8.5 NEUTROPHILS # eCW1 ([facility]) 0.4 0.0-1.0 BASO % eCW1 ([facility]) 0.0 0.0-0.2 BASO # eCW1 ([facility]) 0.1 0.0-0.5 EOS # eCW1 ([facility]) ID Date Data Source PSA SCREENING 12/21/2020 12:00:00 AM EST eCW1 ([facility]) Name Value Range Interpretation Code Description Data Marce rce(s) Supporting Document(s) 1.60 < 4.00 PSA SCREENING eCW1 ([facility]) ID Date Data Source [id number] 09/13/2020 12:00:00 AM EST [facility] Name Value Range Interpretation Code Description Data Marce rce(s) Supporting Document(s) SARS coronavirus 2 RNA [Presence] in Res piratory specimen by [place] with probe detection [facility] This lab was ordered by Xavier Saucedo and reported by [facility]. Procedure Social History Code Duration Value Status Description Data Source(s ) Smoking 08/25/2021 12:00:00 AM EDT Never Smoker completed Never S moker eCW1 ([facility]) Smoking 07/22/2021 12:00:00 AM EDT Never Smoker completed Never S moker eCW1 ([facility]) Smoking 07/22/2021 12:00:00 AM EDT Never Smoker completed Never S moker eCW1 ([facility]) Smoking 06/21/2021 12:00:00 AM EDT Never Smoker completed Never S moker eCW1 ([facility]) Smoking 06/11/2021 12:00:00 AM EDT Patient has never smoked co mpleted Patient has never smoked [facility] ([facility]) Smoking 01/18/2021 12:00:00 AM EST Never Smoker completed Never S moker eCW1 ([facility]) Smoking 01/18/2021 12:00:00 AM EST Never Smoker completed Never S moker eCW1 ([facility]) Smoking 12/28/2020 12:00:00 AM EST Never Smoker completed Never S moker eCW1 ([facility]) Smoking 12/21/2020 12:00:00 AM EST Never Smoker completed Never S moker eCW1 ([facility]) Smoking 12/21/2020 12:00:00 AM EST Never Smoker completed Never S moker eCW1 ([facility]) Vital Signs ID Date Data Source UNK Name Value Range Interpretation Code Description Data Source(s) Body height 69 [in_i] 69 [in_i] eCW1 ([facility]) Body height 175.26 cm 175.26 cm W1 ([facility]) Body weight 215 [lb_av] 215 [lb_av] eCW1 ([facility]) Body weight 97.52 kg 97.52 kg W1 ([facility]) Body mass index (BMI) [Ratio] 31.75 kg/m2 31.75 kg/m2 W1 ([facility]) Body temperature 97.4 [degF] 97.4 [degF] eCW1 ( [facility]) Heart rate 75 /min 75 /min eCW1 ([facility]) Respiratory rate 18 /min 18 /min eCW1 ([facility]) Oxygen saturation in Arterial blood by Pulse oximetry 97 % 97 % W1 ([facility]) Systolic blood pressure 118 mm[Hg] 118 mm[Hg] e CW1 ([facility]) Body weight 95.71 kg 95.71 kg eCW1 ([facility]) Body height 69 [in_i] 69 [in_i] eCW1 ([facility]) Body mass index (BMI) [Ratio] 31.16 kg/m2 31.16 kg/m2 eCW1 ([facility]) Heart rate 80 /min 80 /min eCW1 ([facility]) Respiratory rate 16 /min 16 /min eCW1 ([facility]) Body temperature 97.8 [degF] 97.8 [degF] eCW1 ( [facility]) Diastolic blood pressure 80 mm[Hg] 80 mm[Hg] eCW1 ([facility]) Body weight 211 [lb_av] 211 [lb_av] eCW1 ([facility]) Respiratory rate 16 /min 16 /min [facility] [facility] Body weight 214 [lb_av] 214 [lb_av] eCW1 ([facility]) Body weight 97.07 kg 97.07 kg eCW1 ([facility]) Body height 69 [in_i] 69 [in_i] eCW1 ([facility]) Body mass index (BMI) [Ratio] 31.60 kg/m2 31.60 kg/m2 eCW1 ([facility]) Body temperature 97.8 [degF] 97.8 [degF] eCW1 ( [facility]) Heart rate 80 /min 80 /min eCW1 ([facility]) Systolic blood pressure 116 mm[Hg] 116 mm[Hg] e CW1 ([facility]) Diastolic blood pressure 80 mm[Hg] 80 mm[Hg] eCW1 ([facility]) Oxygen saturation in Arterial blood by Pulse oximetry 97 % 97 % MEDENT ([facility], [facility]) Diastolic blood pressure 87 mm[Hg] 87 mm[Hg] MEDENT ([facility], [facility]) Heart rate 70 /min 70 /min MEDENT ([facility], [facility]) Respiratory rate 18 /min 18 /min MEDENT ( [facility], [facility]) Body temperature 98.0 [degF] 98.0 [degF] MEDENT ([facility], [facility]) Body weight 215.00 [lb_av] 215.00 [lb_av] MEDEN T ([facility] [place], [facility]) Body height 69 [in_i] 69 [in_i] MEDSAMANTHA ([facility] [place], [facility]) 5'9" Systolic blood pressure 128 mm[Hg] 128 mm[Hg] M EDSAMANTHA ([facility] [place], [facility]) Body mass index (BMI) [Ratio] 31.7 kg/m2 31.7 k g/m2 MEDSAMANTHA ([facility] [place], [facility]) Body weight 216.4 [lb_av] 216.4 [lb_av] eCW1 ([facility]) Body height 69 [in_i] 69 [in_i] eCW1 ([facility]) Body mass index (BMI) [Ratio] 31.95 kg/m2 31.95 kg/m2 eCW1 ([facility]) Heart rate 91 /min 91 /min eCW1 ([facility]) Respiratory rate 16 /min 16 /min eCW1 ([facility]) Body temperature 98.5 [degF] 98.5 [degF] eCW1 ( [facility]) Systolic blood pressure 123 mm[Hg] 123 mm[Hg] e CW1 ([facility]) Diastolic blood pressure 74 mm[Hg] 74 mm[Hg] eCW1 ([facility]) Body weight 219 [lb_av] 219 [lb_av] eCW1 ([facility]) Body height 69 [in_i] 69 [in_i] eCW1 ([facility]) Body mass index (BMI) [Ratio] 32.34 kg/m2 32.34 kg/m2 eCW1 ([facility]) Heart rate 70 /min 70 /min eCW1 ([facility]) Respiratory rate 16 /min 16 /min eCW1 ([facility]) Body temperature 98.1 [degF] 98.1 [degF] eCW1 ( [facility]) Systolic blood pressure 118 mm[Hg] 118 mm[Hg] e CW1 ([facility]) Diastolic blood pressure 75 mm[Hg] 75 mm[Hg] eCW1 ([facility]) Body weight 218 [lb_av] 218 [lb_av] eCW1 ([facility]) Body height 69 [in_i] 69 [in_i] eCW1 ([facility]) Body mass index (BMI) [Ratio] 32.19 kg/m2 32.19 kg/m2 eCW1 ([facility]) Heart rate 68 /min 68 /min eCW1 ([facility]) Respiratory rate 16 /min 16 /min eCW1 ([facility]) Body temperature 98.3 [degF] 98.3 [degF] eCW1 ( [facility]) Systolic blood pressure 140 mm[Hg] 140 mm[Hg] e CW1 ([facility]) Diastolic blood pressure 93 mm[Hg] 93 mm[Hg] eCW1 ([facility]) Patient Treatment Plan of Care Planned Activity Planned Date Details Description Data Source (s) Loratadine 10 MG Oral Tablet 06/21/2021 12:00:00 AM EDT eCW1 ([facility])
--- OUTSIDE RECORDS SUMMARY | 2021-09-13 05:08 | CCD ---
Author Author [facility] Organization [facility] Address Unknown Phone Unavailable Care Team Providers Care Framing Carpenter Name Role Phone SharmaFelix morton Unavailable PROBLEMS Type Condition ICD9-CM Code IGF25-SS Code Onset Dates Condition S tatus W/U Status Risk SNOMED Code Notes Problem Other chronic pain G89.29 Active confirmed 8 [id number] ALLERGIES No Known Allergies ENCOUNTERS from 1965 to 2021-08-25 Encounter Location Date Provider Diagnosis [facility] [address] [place] [address] Aug, Felix Sharma Right-sided back pain, unspe cified back location, unspecified chronicity M54.9 ; Pain in thoracic spine M54.6 and Other chronic pain G89.29 IMMUNIZATIONS No Information SOCIAL HISTORY Tobacco Use: Social History Observation Description Date Details (start date - stop date) Never Smoker Sex Assigned At : Social History Observation Description Sex Assigned At Unknown Tobacco Use/Smoking Question Answer Notes Patient is a never smoker REASON FOR REFERRAL from 1965 to 2021-08-25 Reason eval and treat Diagnosis 1 Right-sided back pain, unspe cified back location, unspecified chronicity (M54.9) Referral Organization [facility] Referring Provider First Name Felix Referring Provider Last Name Edith Referring Provider Specialty Orthopedics Referred Provider Advanced [facility] Therapy, Referred Provider Specialty Physical Therapist Referral Priority Routine General Notes Betina Lopez LPN 08/25/20 21 11:16:18 AM > eval and treat for back pain office faxed complete VITAL SIGNS Height 69 in Aug, Height-cm 175.26 cm Aug, Weight 215 lbs Aug, Weight-kg 97.52 kg Aug, BMI 31.75 kg/m2 Aug, Temperature 97.4 degrees Fahrenheit Aug, Heart Rate 75 /min Aug, Respiratory Rate 18 /min Aug, Oximetry 97 % Aug, MEDICATIONS Medication SIG (Take, Route, Frequency, Duration) Notes Start Da te End Date Status Ibuprofen 200 MG 1 tablet with food or milk as needed Ora lly Three times a day Active PROCEDURES No Information RESULTS No Results REASON FOR VISIT Ref Rafi; Mid back pain R side MEDICAL (GENERAL) HISTORY Type Description Date Surgical History No Surgical history information Goals Section No Information Health Concerns No Information MEDICAL EQUIPMENT No Information MENTAL STATUS No Information FUNCTIONAL STATUS No Information ASSESSMENTS Encounter Date Diagnosis Assessment Notes Treatment Notes Treatm ent Clinical Notes Aug, Right-sided back pain, unspe cified back location, unspecified chronicity (ICD-10 - M54.9) Aug, Pain in thoracic spine (ICD-10 - M54.6) For the thoracic back pain I would recommend physiotherapy. I would recommend Mobic 7.5 mg once daily. Next furthermore there is concerned that this may not be an orthopedic or musculoskeletal problem in that regard I would recommend further evaluation by his primary provider and I am also ordering some blood work to include an SPEP UPEP CMP and CRP and sedimentation rate. Particularly concerning is the patient's complaint of fatigue which is beyond the scope of this clinic to evaluate and again needs to be evaluated further by his primary provider. Aug, Other chronic pain (ICD-10 - G89.29) PLAN OF TREATMENT Treatment Notes Assessment Notes Clinical Notes Pain in thoracic spine For the thoracic back pain I would recommend physiotherapy. I would recommend Mobic 7.5 mg once daily. Next furthermore there is concerned that this may not be an orthopedic or musculoskeletal problem in that regard I would recommend further evaluation by his primary provider and I am also ordering some blood work to include an SPEP UPEP CMP and CRP and sedimentation rate. Particularly concerning is the patient's complaint of fatigue which is beyond the scope of this clinic to evaluate and again needs to be evaluated further by his primary provider. Treatment Notes Test Name Order Date X Ray Spine Thoracic 2021-08-25 ERYTHROCYTE SEDIMENTATION RATE (ESR) 2021-08-25 CBC with Manual Differential 2021-08-25 C REACTIVE PROTEIN (CRP) 2021-08-25 PROTEIN ELECTRO.,S - RIVER 2021-08-25 PROTEIN ELECTROPHORE,RAND UR 2021-08-25 Referrals Referral Date Details eval and treat, Advanced Ph ysical Therapy Next Appt Details 6 Weeks Reason:pa Follow Up:6 Weekspa Insurance Providers Payer Name Payer Address Payer Phone Insured Name Patient Relati onship to Insured Coverage Start Date Coverage End Date [facility] [address] [address] [place] [phone] ELIUD CALLEJAS self
--- OUTSIDE RECORDS SUMMARY | 2021-09-13 05:08 | CCD ---
Author Author [facility] Organization [facility] Address Unknown Phone Unavailable Care Team Providers Care Seam Steamer Name Role Phone Em Mckee Unavailable PROBLEMS Type Condition ICD9-CM Code VIB02-UL Code Onset Dates Condition S tatus W/U Status Risk SNOMED Code Notes Problem Kidney stone N20.0 Active confirmed 1653443 7 Problem Other obesity due to excess calories E66.09 Act collin confirmed 308145064 Problem Body mass index (BMI) of 30.0-30.9 in adult Z68.30 Active confirmed 804362939 Problem Neuropathy G62.9 Active confirmed 253892463 Problem Family hx of prostate cancer Z80.42 Active confirme d 635245105 Problem Seasonal allergies J30.2 Active confirmed 4 43543004 Problem Meralgia paresthetica of left side G57.12 Activ e confirmed 33407945 Problem Benign prostatic hyperplasia without lower urina ry tract symptoms N40.0 Active confirmed 664250458 Problem Paresthesia of skin R20.2 Active confirmed 73997618 Problem Adjustment disorder with anxious mood F43.22 Ac tive confirmed 01176132 ALLERGIES No Known Allergies ENCOUNTERS from 1965 to 2021-07-26 Encounter Location Date Provider Diagnosis [facility] [id number] [place] [address] [place] [address] Jul, Em Mckee Pharyngitis, unspecified sylvia ology J02.9 and Mid back pain on right side M54.9 IMMUNIZATIONS Vaccine Route Administration Date Status Influenza [...] you a: never smoker REASON FOR REFERRAL from 1965 to 2021-07-26 Reason 55 y old M with persistent p haryngitis for several months. COVID and strep negative, CXR negative, PFT studies normal. For further evaluation please. Diagnosis 1 Pharyngitis, unspecified sylvia ology (J02.9) [facility] Referring Provider First Name Em Referring Provider Last Name Rafi Referring Provider Specialty Family Medicine Referred Provider Sherrell Buckley ([facility]) Referred Provider Specialty Otology, Laryngology, Rhin ology Referral Priority Routine General Notes Angeline Baker 07/22/2021 3:1 4:46 PM > Sent Reason 55 y old M with persistent m id back pain on the right. No recent injury. Pls further evaluate. Diagnosis 1 Mid back pain on right side (M54.9) Referral Organization [facility] Kyree Referring Provider First Name Em Referring Provider Last Name Rafi Referring Provider Specialty Family Medicine Referred Provider Felix Sharma Referred Provider Specialty Orthopedic Surgery Referral Priority Routine General Notes Angeline Baker 07/22/2021 4:2 6:34 PM > Sent VITAL SIGNS Weight 211 lbs Jul, Weight-kg 95.71 kg Jul, Height 69 in Jul, BMI 31.16 kg/m2 Jul, Heart Rate 80 /min Jul, Respiratory Rate 16 /min Jul, Temperature 97.8 degrees Fahrenheit Jul, Oximetry 96 Jul, Blood pressure systolic 118 mm Hg Jul, Blood pressure diastolic 80 mm Hg Jul, MEDICATIONS Medication SIG (Take, Route, Frequency, Duration) Notes Start Da te End Date Status Gabapentin 300 MG 1 capsule Orally TID Not-Taking Flonase Allergy Relief 50 MCG/ACT 1 spray in each nost ril Nasally Once a day for 30 day(s) Active Loratadine 10 MG 1 tablet Orally Once a day for 30 day(s) Jun, Active Ibuprofen 200 MG 1 tablet with food or milk as needed Ora lly Three times a day Active PROCEDURES No Information RESULTS No Results REASON FOR VISIT 1 month f/u MEDICAL (GENERAL) HISTORY Type Description Date Medical History Kidney Stone Surgical History left ankle around 20 years ago Surgical History Left ESWL 04/20/16 Hospitalization History concussion high school Goals Section No Information Health Concerns No Information MEDICAL EQUIPMENT No Information MENTAL STATUS No Information FUNCTIONAL STATUS No Information ASSESSMENTS Encounter Date Diagnosis Assessment Notes Treatment Notes Treatm ent Clinical Notes 10 Jul, 2021 Pharyngitis, unspecified etiology (ICD-10 - J02. 9) Pt with perisistent irritation of his throat. Pt completed 1 month trial of allergy medicine which did not provide releif. Past work-up has been negative. 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 Will refer to ENT for further evaluation of his chronic throat irritation. Jul, Mid back pain on right side (ICD-10 - M54.9) Pt with ongoing mid-back pain for several months. Pt does heavy lifting at work. However, he denies that this exacerbates his symptoms. Pt takes ibuprofen which provides mild relief. Will send to Ortho for further evaluation. PLAN OF TREATMENT Treatment Notes Assessment Notes Clinical Notes Pharyngitis, unspecified etiology Pt wit h perisistent irritation of his throat. Pt completed 1 month trial of allergy medicine which did not provide releif. Past work-up has been negative. 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 Will refer to ENT for further evaluation of his chronic throat irritation. Mid back pain on right side Pt with ongo ing mid-back pain for several months. Pt does heavy lifting at work. However, he denies that this exacerbates his symptoms. Pt takes ibuprofen which provides mild relief. Will send to Ortho for further evaluation. Referrals Referral Date Details 55 y old M with persistent p haryngitis for several months. COVID and strep negative, CXR negative, PFT studies normal. For further evaluation please., Sherrell Buckley ([facility]) 55 y old M with persistent m id back pain on the right. No recent injury. Pls further evaluate., Felix Sharma Next Appt Details prn Reason:f/u as needed Follow Up:prnf/u as needed Insurance Providers Payer Name Payer Address Payer Phone Insured Name Patient Relati onship to Insured Coverage Start Date Coverage End Date [facility] [phone] [facility] [place] [address]IA [facility] [id number] ELIUD CALLEJAS self
--- OUTSIDE RECORDS SUMMARY | 2021-09-13 05:08 | CCD ---
Author Author [facility] Organization [facility] Address Unknown Phone Unavailable Care Team Providers Care Retail Account Manager Name Role Phone Kaz Mckeeell Unavailable PROBLEMS Type Condition ICD9-CM Code [id number] Code Onset Dates Condition S tatus W/U Status Risk SNOMED Code Notes Problem Kidney stone N20.0 Active confirmed 4809271 7 Problem Other obesity due to excess calories E66.09 Act collin confirmed 795671454 Problem Body mass index (BMI) of 30.0-30.9 in adult Z68.30 Active confirmed 062577349 Problem Neuropathy G62.9 Active confirmed 426370415 Problem Family hx of prostate cancer Z80.42 Active confirme d 655884412 Problem Seasonal allergies J30.2 Active confirmed 4 20372705 Problem Meralgia paresthetica of left side G57.12 Activ e confirmed 13618395 Problem Benign prostatic hyperplasia without lower urina ry tract symptoms N40.0 Active confirmed 126100617 Problem Paresthesia of skin R20.2 Active confirmed 39987213 Problem Adjustment disorder with anxious mood F43.22 Ac tive confirmed 85387638 ALLERGIES No Known Allergies ENCOUNTERS from 1965 to 2021-09-01 Encounter Location Date Provider Diagnosis [address] [phone] [place] [address] Aug, Em Mckee IMMUNIZATIONS Vaccine Route Administration Date Status Influenza [...] REASON FOR REFERRAL No Information VITAL SIGNS No information MEDICATIONS Medication SIG (Take, Route, Frequency, Duration) [...] Information RESULTS No Results REASON FOR VISIT stomach MEDICAL (GENERAL) HISTORY Type Description Date Medical History Kidney Stone Surgical History left ankle around 20 years ago Surgical History Left ESWL 04/20/16 Hospitalization History concussion high school Goals Section No Information Health Concerns No Information MEDICAL EQUIPMENT No Information MENTAL STATUS No Information FUNCTIONAL STATUS No Information ASSESSMENTS No Information PLAN OF TREATMENT No Information Insurance Providers Payer Name Payer Address Payer Phone Insured Name Patient Relati onship to Insured Coverage Start Date Coverage End Date BCBS [employer] PPO [phone] [facility] [employer] [place] [address] ELIUD CALLEJAS self
[2021-09-13 06:02] LABS: BASO # 0.1 10^3/uL (0.0-0.2); BASO % 0.6 % (0.0-1.0); EOS # 0.2 10^3/uL (0.0-0.5); HEMATOCRIT 45.7 % (42.0-52.0); HEMOGLOBIN 15.5 g/dl (13.5-17.5); LYMPH % 25.3 % (24.0-44.0); MEAN CORPUSCULAR HGB CONC 33.9 g/dl (32.0-36.5); MEAN CORPUSCULAR VOLUME 94.4 fl (80.0-96.0); MONO # 0.8 10^3/uL (0.0-0.8); MONO % 9.6 % (2.0-8.0); NEUTROPHILS # 4.9 10^3/uL (1.5-8.5); NEUTROPHILS % 62.2 % (36.0-66.0); PLATELET COUNT, AUTOMATED 192 10^3/uL (150-450); RED BLOOD COUNT 4.84 10^6/uL (4.30-6.10); WHITE BLOOD COUNT 7.9 10^3/uL (4.0-10.0)
[2021-09-13 06:29] LABS: BLOOD UREA NITROGEN 20 MG/DL (7-18); CALCIUM LEVEL 8.9 MG/DL (8.5-10.1); CARBON DIOXIDE LEVEL 26 MEQ/L (21-32); CHLORIDE LEVEL 108 MEQ/L (98-107); CREATININE FOR GFR 0.92 MG/DL (0.70-1.30); GLOMERULAR FILTRATION RATE > 60.0 (>56); GLUCOSE, FASTING 102 MG/DL (70-100); POTASSIUM SERUM 4.5 MEQ/L (3.5-5.1); SODIUM LEVEL 139 MEQ/L (136-145)
[2021-09-13] MEDS ORDERED: FLUTISP (07:07)
[2021-09-13] MEDS ORDERED: OMEP-218 (07:07)
--- OUTSIDE RECORDS SUMMARY | 2021-09-13 07:21 | CCD ---
Author Author [facility] Organization [facility] Address Unknown Phone Unavailable Care Team Providers Care Instrument Man Name Role Phone Frank Loomis Unavailable Unavailable [...] is protected by Article 27-F of the [facility] Public Health law. If you continue you may have access to information: Regarding HIV / AIDS; Provided by facilities licensed or operated by the [facility] Office of Mental Health; or Provided by the [facility] Office for People With Developmental Disabilities. If such information is present, then the following [facility] mandated warning applies: This information has been [...] Date Indications Data Source(s ) [place] [address] [address] 08/31/2021 12:00:00 AM EDT eCW1 ([facility]) Outpatient Attender: Felix Sharma MD ER-MOB 08/25/2021 02:54:00 AM EDT [facility] Outpatient [address] [place] [address] 08/25/2021 12:00:00 AM EDT eCW1 ([facility]) Outpatient Attender: YESSENIA MOBLEY MD 08/11/2021 09:59:00 AM T [facility] [place] [address] [address] 07/22/2021 12:00:00 AM EDT eCW1 ([facility]) [place] [address] [address] 06/21/2021 12:00:00 AM EDT eCW1 ([facility]) Outpatient Attender: KELLY Newell 06/11/2021 12:30:00 PM EDT MEDENT ([facility]) Office Visit Attender: Chastity Loomis MD Main office - [place] 04/12/2021 10:30:00 AM EDT MEDENT ([facility]ika, ) [place] [address] [address] 02/11/2021 12:00:00 AM EDT eCW1 ([facility]) Outpatient [address] [facility] [facility] [place] [address] 01/18/2021 12:00:00 AM EST eCW1 ([facility]) Outpatient [address] [facility] [place] [address] 12/28/2020 12:00:00 AM EST eCW1 ([facility]) [place] [address] [place] [address] 12/22/2020 12:00:00 AM EST eCW1 ([facility]) [place] [address] [place] [address] 12/21/2020 12:00:00 AM EST eCW1 ([facility]) Office Visit Attender: Chastity Loomis MD Main office - [place] 12/13/2020 10:00:00 AM EST MEDENT ([facility]) Outpatient Attender: Chastity Loomis MD Main office - [place] 08/09/2020 11:00:00 AM EDT MEDENT ([facility]) Immunizations Vaccine Date Status Description Data Source(s) COVID-19 VACCINE Moderna 03/07/2021 12:00:00 AM EDT completed [facility] Vaccine Series Complete: YESThis Data wa s Submitted to [facility]. COVID-19 VACC,MRNA(MODERNA)/PF 02/03/2021 12:00:00 AM EDT completed [facility] COVID-19 VACCINE Moderna 02/03/2021 12:00:00 AM EDT completed [facility] Vaccine Series Complete: NOThis Data was Submitted to [facility]. Medications Medication Brand Name Start Date Product Form Dose Route Admi nistrative Instructions Pharmacy Instructions Status Indications Reaction Description Data Source(s) Fluticasone propionate 0.05 MG/ACTUAT Metered Dose [facility] [place] 50 mcg/actuation FLUTICASONE PROPIONATE 08/11/2021 12:00:00 AM [...] {tablet} active Loratadine 10 MG eCW1 ( [facility]) Loratadine 10 MG Oral Tablet Loratadine 10 MG 06/21/2021 12:00:00 A M EDT 1.0 {tablet} active Loratadine 10 MG eCW1 ( [facility]) Loratadine 10 MG Oral Tablet Loratadine 10 MG 06/21/2021 12:00:00 A M EDT 1.0 {tablet} active Loratadine 10 MG eCW1 ( [facility]) Fluticasone propionate 0.05 MG/ACTUAT Metered Dose [facility] [facility] [place] 50 mcg/actuation FLUTICASONE PROPIONATE 06/11/2021 12:00:00 AM EDT spray,suspension 16 SPRAY TWO SPRAYS IN EACH NOSTRIL ONCE DAILY SPRAY TWO SPRAYS IN EACH NOSTRIL ONCE DAILY SOLD: 06/11/2021 [facility] Fluticasone Propionate Fluticasone Propionate 06/11/2021 12:00:00 AM E DT active MEDENT ([facility]) No Active Medications 06/11/2021 12:00:00 AM EDT completed MEDENT ([facility], [facility]) Insurance Providers Payer name Policy type / Coverage type Policy ID Covered libertarian ID Covered libertarian's relationship to jeffers Policy Jeffers Plan Information [employer] [place] P[place] 302/307 [id number] SP [id number] [place] [place] P[place] 302/307 [id number] SP [id number] BLUE CROSS [id number] S [id number] [place] [place] PPO 302/307 [id number] SP [id number] [facility] BCBS B [id number] S [id number] ANSI-Commercial [id number] ANSI-Commercial [id number] ANSI-Commercial [id number] ANSI-Commercial [id number] [place] P[place] 302/307 [id number] SP [id number] ANSI-Commercial [id number] ANSI-Commercial [id number] ANSI-Commercial [id number] ANSI-Commercial [id number] ANSI-Commercial [id number] [facility] [employer] (HMO) [id number] Self [id number] [facility] Health Maintenance Organization (O) [id number] Self [id number] [employer] [place] P[place] 302/307 [id number] SP [id number] [employer] [place] PPO 302/307 [id number] SP [id number] BCBS JOYCE DE [place]RE PPO 302/307 [id number] SP [id number] BC BS [place] [id number] SP [id number] [employer] [place] [id number] S [id number] Problems, Conditions, and Diagnoses Code Display Name Description Problem Type Effective Dates Data Source(s) M54.9 Dorsalgia, unspecified DORSALGIA, UNSPECIFIED Diagnosi s 08/25/2021 02:54:00 AM EDT [facility] J37.0 Chronic laryngitis CHRONIC LARYNGITIS Diagnosis 09:59:00 AM EDT [facility] G89.29 [id number] Other chronic pain Problem 08/25/2021 12:00: 00 AM EDT eCW1 ([facility]) J30.2 [id number] Seasonal allergies Problem 06/21/2021 12:00: 00 AM EDT eCW1 ([facility]) Surgeries/Procedures Procedure Description Date Indications Data Source(s) OFFICE OUTPATIENT NEW 30 MINUTES 06/11/2021 12:00:00 A M EDT MEDENT ([facility], [facility]) Results ID Date Data Source [id number] 08/25/2021 10:23:00 AM EDT [facility] Exam Number: [id number] OF EXAMINATIO N: 08/25/2021 9:53 EDTHISTORY: PainTECHNIQUE: [...] rce(s) Supporting Document(s) ID Date Data Source [id number] 06/11/2021 03:08:00 PM EDT MEDENT ([facility]) Name Value Range Interpretation Code Description Data Marce rce(s) Supporting Document(s) Group A Strep Culture Laboratory test result MEDENT ([facility]) FULL REPORT IN LAB NOTES (eCW and [facility] ). NEGATIVE FOR STREP PYOGENES (GROUP A) ID Date Data Source [id number] 06/11/2021 12:00:00 AM EDT [facility] Name Value Range Interpretation Code Description Data Marce rce(s) Supporting Document(s) SARS-CoV2 Rapid Antigen [facility] was reported by [facility]. ID Date Data Source UA URINALYSIS 12/28/2020 12:00:00 AM EST eCW1 ([facility]) Name Value Range Interpretation Code Description Data Marce rce(s) Supporting Document(s) Laboratory studies (set) UA URINALYS IS eCW1 ([facility]) ID Date Data Source Comprehensive Metabolic Profile (CMP) 12/21/2020 12:00:00 AM EST eCW1 ([facility]) Name Value Range Interpretation Code Description Data Marce rce(s) Supporting Document(s) 19 7-18 BLOOD UREA NITROGEN eCW1 ([facility]) 92 70-100 GLUCOSE, FASTING eCW1 ([facility]) 0.93 0.70-1.30 CREATININE FOR GFR eCW1 ([facility]) 4.1 3.5-5.1 POTASSIUM SERUM eCW1 (Critical access hospital) > 60.0 >56 GLOMERULAR FILTRATION RATE eCW 1 ([facility]) 144 136-145 SODIUM LEVEL eCW1 ([facility]) 24 7-37 AST/SGOT eCW1 ([facility]) 108 98-107 CHLORIDE LEVEL eCW1 ([facility]) 9.2 8.5-10.1 CALCIUM LEVEL eCW1 ([facility]) 30 21-32 CARBON DIOXIDE LEVEL eCW1 ([facility]) 88 45-117 ALKALINE PHOSPHATASE eCW1 ([facility]) 7.6 6.4-8.2 TOTAL PROTEIN eCW1 ([facility]) 26 12-78 ALT/SGPT eCW1 ([facility]) 1.2 0.2-1.0 BILIRUBIN,TOTAL eCW1 ([facility] hospital) 3.8 3.2-5.2 ALBUMIN eCW1 ([facility]) 1.0 ALBUMIN/GLOBULIN RATIO eCW1 ([facility]) ID Date Data Source URINE CULTURE 12/21/2020 12:00:00 AM EST eCW1 ([facility]) Name Value Range Interpretation Code Description Data Marce rce(s) Supporting Document(s) Laboratory studies (set) URINE CULTU RE eCW1 ([facility]) ID Date Data Source CBC with Differential 12/21/2020 12:00:00 AM EST eCW1 ([facility]) Name Value Range Interpretation Code Description Data Marce rce(s) Supporting Document(s) 7.4 4.0-10.0 WHITE BLOOD COUNT eCW1 ([facility]) 46.9 42.0-52.0 HEMATOCRIT eCW1 ([facility] hospital) 4.84 4.30-6.10 RED BLOOD COUNT eCW1 ([facility]) 15.2 13.5-17.5 HEMOGLOBIN eCW1 ([facility] hospital) 96.9 80.0-96.0 MEAN CORPUSCULAR VOLUME e CW1 ([facility]) 228 150-450 PLATELET COUNT, AUTOMATED eCW1 ([facility]) 12.4 11.5-14.5 RED CELL DISTRIBUTION WID TH eCW1 ([facility]) 31.4 27.0-33.0 MEAN CORPUSCULAR HEMOGLOB IN eCW1 ([facility]) 32.4 32.0-36.5 MEAN CORPUSCULAR HGB CONC eCW1 ([facility]) 20.9 24.0-44.0 LYMPH % eCW1 ([facility]) 8.0 0.0-5.0 MONO % eCW1 ([facility]) 1.0 0.0-3.0 EOS % eCW1 ([facility]) 69.4 36.0-66.0 NEUTROPHILS % eCW1 ([facility]) 1.5 1.5-5.0 LYMPH # eCW1 ([facility]) 0.6 0.0-0.8 MONO # eCW1 ([facility]) 5.1 1.5-8.5 NEUTROPHILS # eCW1 ([facility]) 0.4 0.0-1.0 BASO % eCW1 ([facility]) 0.0 0.0-0.2 BASO # eCW1 ([facility]) 0.1 0.0-0.5 EOS # eCW1 ([facility]) ID Date Data Source PSA SCREENING 12/21/2020 12:00:00 AM EST eCW1 ([facility]) Name Value Range Interpretation Code Description Data Marce rce(s) Supporting Document(s) 1.60 < 4.00 PSA SCREENING eCW1 ([facility]) ID Date Data Source [id number] 09/13/2020 12:00:00 AM EST [facility] Name Value Range Interpretation Code Description Data Marce rce(s) Supporting Document(s) SARS coronavirus 2 RNA [Presence] in Res piratory specimen by [place] with probe detection [facility] This lab was ordered by Xavier Saucedo and reported by [facility]. Procedure Social History Code Duration Value Status Description Data Source(s ) Smoking 08/25/2021 12:00:00 AM EDT Never Smoker completed Never S moker eCW1 ([facility]) Smoking 07/22/2021 12:00:00 AM EDT Never Smoker completed Never S moker eCW1 ([facility]) Smoking 07/22/2021 12:00:00 AM EDT Never Smoker completed Never S moker eCW1 ([facility]) Smoking 06/21/2021 12:00:00 AM EDT Never Smoker completed Never S moker eCW1 ([facility]) Smoking 06/11/2021 12:00:00 AM EDT Patient has never smoked co mpleted Patient has never smoked MEDENT ([facility], [facility]) Smoking 01/18/2021 12:00:00 AM EST Never Smoker completed Never S moker eCW1 ([facility]) Smoking 01/18/2021 12:00:00 AM EST Never Smoker completed Never S moker eCW1 ([facility]) Smoking 12/28/2020 12:00:00 AM EST Never Smoker completed Never S moker eCW1 ([facility]) Smoking 12/21/2020 12:00:00 AM EST Never Smoker completed Never S moker eCW1 ([facility]) Smoking 12/21/2020 12:00:00 AM EST Never Smoker completed Never S moker eCW1 ([facility]) Vital Signs ID Date Data Source UNK Name Value Range Interpretation Code Description Data Source(s) Body height 69 [in_i] 69 [in_i] eCW1 ([facility]) Body height 175.26 cm 175.26 cm W1 ([facility]) Body weight 215 [lb_av] 215 [lb_av] eCW1 ([facility]) Body weight 97.52 kg 97.52 kg W1 ([facility]) Body mass index (BMI) [Ratio] 31.75 kg/m2 31.75 kg/m2 W1 ([facility]) Body temperature 97.4 [degF] 97.4 [degF] eCW1 ( [facility]) Heart rate 75 /min 75 /min eCW1 ([facility]) Respiratory rate 18 /min 18 /min eCW1 ([facility]) Oxygen saturation in Arterial blood by Pulse oximetry 97 % 97 % W1 ([facility]) Body weight 95.71 kg 95.71 kg eCW1 ([facility]) Body weight 211 [lb_av] 211 [lb_av] eCW1 ([facility]) Body height 69 [in_i] 69 [in_i] eCW1 ([facility]) Body mass index (BMI) [Ratio] 31.16 kg/m2 31.16 kg/m2 eCW1 ([facility]) Heart rate 80 /min 80 /min eCW1 ([facility]) Respiratory rate 16 /min 16 /min eCW1 ([facility]) Body temperature 97.8 [degF] 97.8 [degF] eCW1 ( [facility]) Systolic blood pressure 118 mm[Hg] 118 mm[Hg] e CW1 ([facility]) Diastolic blood pressure 80 mm[Hg] 80 mm[Hg] eCW1 ([facility]) Respiratory rate 16 /min 16 /min eCW1 ([facility]) Body mass index (BMI) [Ratio] 31.60 kg/m2 31.60 kg/m2 eCW1 ([facility]) Body weight 214 [lb_av] 214 [lb_av] eCW1 ([facility]) Body weight 97.07 kg 97.07 kg W1 ([facility]) Body height 69 [in_i] 69 [in_i] eCW1 ([facility]) Heart rate 80 /min 80 /min eCW1 ([facility]) Body temperature 97.8 [degF] 97.8 [degF] eCW1 ( [facility]) Systolic blood pressure 116 mm[Hg] 116 mm[Hg] e CW1 ([facility]) Diastolic blood pressure 80 mm[Hg] 80 mm[Hg] eCW1 ([facility]) Diastolic blood pressure 87 mm[Hg] 87 mm[Hg] MEDENT ([facility] Systolic blood pressure 128 mm[Hg] 128 mm[Hg] M EDENT ([facility], [facility]) Body mass index (BMI) [Ratio] 31.7 kg/m2 31.7 k g/m2 MEDENT ([facility]) Heart rate 70 /min 70 /min MEDENT ([facility]) Respiratory rate 18 /min 18 /min MEDENT ( [facility], [facility]) Body temperature 98.0 [degF] 98.0 [degF] MEDENT ([facility], [facility]) Body weight 215.00 [lb_av] 215.00 [lb_av] MEDEN T ([facility], [facility]) Body height 69 [in_i] 69 [in_i] MEDENT ([facility], [facility]) 5'9" Oxygen saturation in Arterial blood by Pulse oximetry 97 % 97 % MEDENT ([facility], [facility]) Body weight 216.4 [lb_av] 216.4 [lb_av] eCW1 ([facility]) Body height 69 [in_i] 69 [in_i] eCW1 ([facility]) Body mass index (BMI) [Ratio] 31.95 kg/m2 31.95 kg/m2 eCW1 ([facility]) Heart rate 91 /min 91 /min eCW1 ([facility]) Respiratory rate 16 /min 16 /min eCW1 ([facility]) Body temperature 98.5 [degF] 98.5 [degF] eCW1 ( [facility]) Systolic blood pressure 123 mm[Hg] 123 mm[Hg] e CW1 ([facility]) Diastolic blood pressure 74 mm[Hg] 74 mm[Hg] eCW1 ([facility]) Body weight 219 [lb_av] 219 [lb_av] eCW1 ([facility]) Body height 69 [in_i] 69 [in_i] eCW1 ([facility]) Body mass index (BMI) [Ratio] 32.34 kg/m2 32.34 kg/m2 eCW1 ([facility]) Heart rate 70 /min 70 /min eCW1 ([facility] hospital) Respiratory rate 16 /min 16 /min eCW1 ([facility]) Body temperature 98.1 [degF] 98.1 [degF] eCW1 ( [facility]) Systolic blood pressure 118 mm[Hg] 118 mm[Hg] e CW1 ([facility]) Diastolic blood pressure 75 mm[Hg] 75 mm[Hg] eCW1 ([facility]) Body weight 218 [lb_av] 218 [lb_av] eCW1 ([facility]) Body height 69 [in_i] 69 [in_i] eCW1 ([facility]) Body mass index (BMI) [Ratio] 32.19 kg/m2 32.19 kg/m2 eCW1 ([facility]) Heart rate 68 /min 68 /min eCW1 (Critical access hospital) Respiratory rate 16 /min 16 /min eCW1 ([facility]) Body temperature 98.3 [degF] 98.3 [degF] eCW1 ( [facility]) Systolic blood pressure 140 mm[Hg] 140 mm[Hg] e CW1 ([facility]) Diastolic blood pressure 93 mm[Hg] 93 mm[Hg] eCW1 ([facility]) Patient Treatment Plan of Care Planned Activity Planned Date Details Description Data Source (s) Loratadine 10 MG Oral Tablet 06/21/2021 12:00:00 AM EDT eCW1 ([facility])
[2021-09-13 07:37] LABS: APPEARANCE, URINE CLEAR (CLEAR); BACTERIA, URINE AUTO NEGATIVE (NEGATIVE); BILIRUBIN, URINE AUTO NEGATIVE (NEGATIVE); BLOOD, URINE BLOOD NEGATIVE (NEGATIVE); COLOR, URINE YELLOW (YELLOW); GLUCOSE, URINE (UA) AUTO NEGATIVE (NEGATIVE); KETONE, URINE AUTO NEGATIVE (NEGATIVE); LEUKOCYTE ESTERASE, URINE AUTO NEGATIVE (NEGATIVE); NITRITE, URINE AUTO NEGATIVE (NEGATIVE); PROTEIN, URINE AUTO NEGATIVE (NEGATIVE); RBC, URINE AUTO 1 /HPF (0-3); SPECIFIC GRAVITY URINE AUTO 1.014 (1.002-1.035); SQUAMOUS EPITHELIAL CELL UR AU 0 /HPF (0-6); UROBILINOGEN, URINE AUTO 0.2 mg/dL (0.0-2.0); WBC, URINE AUTO 0 /HPF (0-3)
[2021-09-13] MEDS ORDERED: ONDANSETRON 4MG/2ML VIAL IV ONE (07:50)
[2021-09-13] MEDS ORDERED: KETOROLAC 30 MG/ML 1ML VIAL IV ONE (07:50)
[2021-09-13] MEDS ORDERED: ISOVUE-370 76% 100ML VIAL As Ordered ONE (08:03)
--- NOTE | 2021-09-13 08:57 | REP ---
INDICATION: RLQ abd pain radiates to back, 5-6 wks. COMPARISON: CT without 06/27/2013 TECHNIQUE: Bolus of 100 mL Isovue 370 scanning through the abdomen and pelvis with coronal and sagittal reconstructions. FINDINGS: CT abdomen: The lung bases show some mild subsegmental atelectatic change in the posterior basal segment on the right and the lateral basal segment on the left. No effusion, infiltrate or mass in the lung bases. Heart size not enlarged. No pericardial thickening or effusion. No hiatal hernia. There is no hepatosplenomegaly. Small hyperdense hemangioma is noted anteriorly in the right hepatic lobe, about 11 mm. Another small hemangioma about 7 mm on image 29 posteriorly in the right hepatic lobe. On image 23 in the right hepatic lobe is a 7 mm hepatic cyst with attenuation value 4 HU. There are a few small subcentimeter cysts in the left hepatic lobe. No other hepatic findings. The gallbladder is without calcified stone or mass. Pancreas, adrenal glands, spleen and left kidney are unremarkable. There is punctate 2 mm calcification in a pyramid within the lower pole the right kidney without hydronephrosis. There is no hydroureter or ureteral stone on the right and the left kidney collecting system and ureter were unremarkable. The aorta is without aneurysm but has a few scattered calcifications. No periaortic, mesenteric or other retroperitoneal pathologic sized lymphadenopathy noted. Stomach collapsed but unremarkable. The appendix is seen and normal. A few small lymph nodes near the cecum noted. There are no inflammatory changes about the terminal ileum. The jejunum and ileum show no acute finding. There are a few scattered diverticula in the colon without signs of diverticulitis. Bone windows show vacuum phenomenon at the L5-S1 and disc space narrowing. There is some mild grade 1 anterior wedging of the T12 vertebral body which is unchanged from a thoracic spine series of 12/21/2020. No acute finding in the spine. There is facet arthropathy lower lumbar region. Visualized lower ribs intact. CT pelvis: Both SI joints show sclerosis, iliac greater than sacral side, representing some mild sacroiliitis with some subtle erosive changes. No sacral fracture or focal lesion. Iliac bones are otherwise unremarkable. There are some minor degenerative changes of the hips with symmetric hip joint spaces. No hip fracture or focal lesion. The bony pelvis otherwise unremarkable. Bladder partially filled and shows distal ureters without dilatation or stone. No bladder wall thickening stone or mass. Distal left colon sigmoid and rectum without acute finding. There is no inguinal hernia or midline ventral hernia. No pathologic sized pelvic or inguinal adenopathy. No pelvic or abdominal free fluid. Lung window review of all CT slices abdomen and pelvis shows no perforation or free air. IMPRESSION: 1. Few small hemangiomas and simple cysts in the liver without hepatosplenomegaly, mass or other acute finding. No ascites. 2. Few scattered diverticula in the colon without diverticulitis, colitis stricture or mass. No abscess, perforation or free air. 3. Appendix seen and normal. Few scattered small pericecal nodes without inflammatory changes in the terminal ileum. 4. Right kidneys shows a nonobstructive punctate 2 mm calcification lower pole pyramid without other collecting system or ureteral stone on either side and no hydronephrosis or hydroureter. Bladder without stone or mass. 5. Gallbladder, adrenal glands, pancreas and spleen unremarkable. 6. Old minor wedge compression deformity T12. Mild bilateral sacroiliitis. <Electronically signed by Thom Mendoza > 09/13/21 [id number]
[2021-09-13] MEDS ORDERED: ASPE4PAD TOP (09:30)
[2021-09-13] MEDS ORDERED: FAMO20TA PO (09:30)
[2021-09-13] MEDS ORDERED: METH-1165 PO (09:30)
[2021-09-13 09:36] VITALS: BP 127/70
== END 2021-09-13 09:37 | disposition home or self-care (01) ==
LOC: M ED 05:04
DX: R10.9 Unspecified abdominal pain (principal); M54.50 Low back pain, unspecified; K76.89 Other specified diseases of liver; K57.30 Diverticulosis of large intestine without perforation or abscess without bleeding; N20.0 Calculus of kidney; R93.7 Abnormal findings on diagnostic imaging of other parts of musculoskeletal system
CPT/HCPCS: 74177; 80048; 81001; 85025; 96374; 96375; 99284; J1885; J2405; Q9967

== ENCOUNTER → 2021-11-07 | Outpatient (CLI) | payer BC ==
[~2021-11-07] MED LIST changes: +ASPE4PAD TOP; +FAMO20TA PO; +FLUTISP; +METH-1165 PO; +OMEP-173
[2021-11-07 12:00] LABS: BASO % 0.5 % (0.0-1.0); EOS # 0.2 10^3/uL (0.0-0.5); EOS % 2.3 % (0.0-3.0); HEMATOCRIT 43.3 % (42.0-52.0); HEMOGLOBIN 14.3 g/dl (13.5-17.5); LYMPH # 1.6 10^3/uL (1.5-5.0); LYMPH % 20.9 % (24.0-44.0); MEAN CORPUSCULAR HEMOGLOBIN 32.1 pg (27.0-33.0); MEAN CORPUSCULAR VOLUME 97.3 fl (80.0-96.0); MONO # 0.5 10^3/uL (0.0-0.8); MONO % 6.8 % (2.0-8.0); NEUTROPHILS # 5.2 10^3/uL (1.5-8.5); NEUTROPHILS % 69.1 % (36.0-66.0); PLATELET COUNT, AUTOMATED 226 10^3/uL (150-450); RED BLOOD COUNT 4.45 10^6/uL (4.30-6.10); WHITE BLOOD COUNT 7.5 10^3/uL (4.0-10.0)
[2021-11-07 12:26] LABS: ERYTHROCYTE SEDIMENTATION RATE 27 mm/hr (0-20)
[2021-11-07 12:29] LABS: C REACTIVE PROTEIN QUANTITATIV < 0.30 MG/DL (0.00-0.30); RHEUMATOID FACTOR QUANT < 10.0 IU/ML (<15.0); TOTAL PROTEIN 7.2 GM/DL (6.4-8.2)
[2021-11-09 09:47] LABS: ALBUMIN 3.95 GM/DL (3.29-5.55); ALBUMIN % 54.9 % (55.8-66.1); ALPHA-1-GLOBULINS 0.33 GM/DL (0.17-0.41)
[2021-11-09 09:48] LABS: ALPHA-1-GLOBULIN % 4.6 % (2.9-4.9); ALPHA-2-GLOBULINS 0.81 GM/DL (0.42-0.99); ALPHA-2-GLOBULINS % 11.3 % (7.1-11.8); BETA-1-GLOBULINS 0.43 GM/DL (0.28-0.60); BETA-2-GLOBULINS 0.45 GM/DL (0.19-0.55); BETA-2-GLOBULINS % 6.2 % (3.2-6.5); GAMMA GLOBULINS 1.22 GM/DL (0.65-1.58)
[2021-11-15 21:07] LABS: ANTINUCLEAR ANTIBODIES DIRECT Negative (Negative); HLA-B27 Positive (.)
== END ==
LOC: M WUC 09:44
PROVIDERS: ATTEND Orthopaedic Surgery
DX: M54.50 Low back pain, unspecified (principal)

== ENCOUNTER → 2021-12-12 | Outpatient (CLI) | payer BC ==
[2021-12-12 16:37] LABS: BASO % 0.5 % (0.0-1.0); EOS # 0.2 10^3/uL (0.0-0.5); EOS % 2.2 % (0.0-3.0); HEMATOCRIT 45.5 % (42.0-52.0); HEMOGLOBIN 14.9 g/dl (13.5-17.5); LYMPH # 1.9 10^3/uL (1.5-5.0); LYMPH % 25.7 % (24.0-44.0); MEAN CORPUSCULAR HGB CONC 32.7 g/dl (32.0-36.5); MEAN CORPUSCULAR VOLUME 97.6 fl (80.0-96.0); MONO # 0.7 10^3/uL (0.0-0.8); MONO % 9.5 % (2.0-8.0); NEUTROPHILS # 4.6 10^3/uL (1.5-8.5); NEUTROPHILS % 61.8 % (36.0-66.0); PLATELET COUNT, AUTOMATED 247 10^3/uL (150-450); RED BLOOD COUNT 4.66 10^6/uL (4.30-6.10); WHITE BLOOD COUNT 7.4 10^3/uL (4.0-10.0)
[2021-12-12 17:10] LABS: ALBUMIN 3.5 GM/DL (3.2-5.2); ALT/SGPT 29 U/L (12-78); BILIRUBIN,TOTAL 0.5 MG/DL (0.2-1.0); BLOOD UREA NITROGEN 17 MG/DL (7-18); CALCIUM LEVEL 9.1 MG/DL (8.5-10.1); CARBON DIOXIDE LEVEL 29 MEQ/L (21-32); CHLORIDE LEVEL 106 MEQ/L (98-107); CHOLESTEROL LEVEL 166 MG/DL (<200); CHOLESTEROL RISK RATIO 2.862 (<5); CREATININE FOR GFR 0.93 MG/DL (0.70-1.30); FREE T4 1.27 NG/DL (0.76-1.46); GLOMERULAR FILTRATION RATE > 60.0 (>56); GLUCOSE, FASTING 86 MG/DL (70-100); HDL CHOLESTEROL 58 MG/DL (>40); LDL CHOLESTEROL 89 MG/DL (<100); NON-HDL-C 108 MG/DL; POTASSIUM SERUM 4.2 MEQ/L (3.5-5.1); SODIUM LEVEL 140 MEQ/L (136-145); TOTAL PROTEIN 7.3 GM/DL (6.4-8.2); TRIGLYCERIDES LEVEL 93 MG/DL (<150)
[2021-12-12 17:21] LABS: HEMOGLOBIN A1c 5.2 %
== END ==
LOC: M WUC 11:24
PROVIDERS: ATTEND Student in an Organized Health Care Education/Training Program
DX: Z00.00 Encounter for general adult medical examination without abnormal findings (principal); R53.83 Other fatigue; Z13.1 Encounter for screening for diabetes mellitus
CPT/HCPCS: 36415; 80053; 80061; 83036; 84439; 84443; 85025; G0103

== ENCOUNTER → 2023-11-09 | Outpatient (CLI) | payer OTHER ==
[2023-11-09 12:46] LABS: BASO % 0.4 % (0.0-1.0); EOS # 0.1 10^3/uL (0.0-0.5); EOS % 1.3 % (0.0-3.0); HEMATOCRIT 42.4 % (42.0-52.0); HEMOGLOBIN 14.6 g/dl (13.5-17.5); LYMPH # 1.9 10^3/uL (1.5-5.0); MEAN CORPUSCULAR HEMOGLOBIN 32.6 pg (27.0-33.0); MEAN CORPUSCULAR HGB CONC 34.4 g/dl (32.0-36.5); MEAN CORPUSCULAR VOLUME 94.6 fl (80.0-96.0); MONO # 0.6 10^3/uL (0.0-0.8); MONO % 7.7 % (2.0-8.0); NEUTROPHILS # 4.9 10^3/uL (1.5-8.5); NEUTROPHILS % 65.3 % (36.0-66.0); PLATELET COUNT, AUTOMATED 217 10^3/uL (150-450); RED BLOOD COUNT 4.48 10^6/uL (4.30-6.10); WHITE BLOOD COUNT 7.5 10^3/uL (4.0-10.0)
[2023-11-09 13:20] LABS: ALBUMIN 3.7 G/DL (3.2-5.2); ALKALINE PHOSPHATASE 75 U/L (46-116); ALT/SGPT 28 U/L (7.0-40); AST/SGOT 29 U/L (<34); BILIRUBIN,TOTAL 1.3 MG/DL (0.3-1.2); BLOOD UREA NITROGEN 19 MG/DL (9-23); CALCIUM LEVEL 8.6 MG/DL (8.5-10.1); CARBON DIOXIDE LEVEL 28 MMOL/L (20-31); CHLORIDE LEVEL 107 MMOL/L (98-107); CHOLESTEROL LEVEL 187 MG/DL (<200); CHOLESTEROL RISK RATIO 3.09 (<5); GLOMERULAR FILTRATION RATE > 60.0 (>56); GLUCOSE, FASTING 89 MG/DL (60-100); HDL CHOLESTEROL 60.4 MG/DL (>40); NON-HDL-C 126.6 MG/DL; SODIUM LEVEL 142 MMOL/L (136-145); THYROID STIMULATING HORMONE 1.766 uIU/ML (0.55-4.78); TOTAL 25(OH) VITAMIN D 24.4 NG/ML (20.0-100.0); TOTAL PROTEIN 6.9 G/DL (5.7-8.2); TRIGLYCERIDES LEVEL 78 MG/DL (<150)
[2023-11-09 13:28] LABS: HEMOGLOBIN A1c 5.2 % (4.0-6.0)
== END ==
LOC: M WUC 10:14
PROVIDERS: ATTEND Physician Assistant
DX: Z00.00 Encounter for general adult medical examination without abnormal findings (principal)
CPT/HCPCS: 36415; 80053; 80061; 82306; 83036; 84443; 85025; G0103

== ENCOUNTER → 2024-02-07 | Outpatient (CLI) | payer OTHER ==
[2024-02-07 16:42] LABS: BASO % 0.4 % (0.0-1.0); EOS # 0.2 10^3/uL (0.0-0.5); EOS % 2.4 % (0.0-3.0); HEMATOCRIT 43.4 % (42.0-52.0); HEMOGLOBIN 15.2 g/dl (13.5-17.5); LYMPH # 2.1 10^3/uL (1.5-5.0); LYMPH % 27.7 % (24.0-44.0); MEAN CORPUSCULAR HEMOGLOBIN 33.5 pg (27.0-33.0); MEAN CORPUSCULAR VOLUME 95.6 fl (80.0-96.0); MONO # 0.5 10^3/uL (0.0-0.8); MONO % 7.1 % (2.0-8.0); NEUTROPHILS # 4.6 10^3/uL (1.5-8.5); NEUTROPHILS % 62.1 % (36.0-66.0); PLATELET COUNT, AUTOMATED 220 10^3/uL (150-450); RED BLOOD COUNT 4.54 10^6/uL (4.30-6.10); WHITE BLOOD COUNT 7.5 10^3/uL (4.0-10.0)
[2024-02-07 17:07] LABS: ERYTHROCYTE SEDIMENTATION RATE 21 mm/hr (0-20)
[2024-02-07 17:11] LABS: C REACTIVE PROTEIN QUANTITATIV < 0.40 MG/DL (<1.0)
[2024-02-07 17:14] LABS: RHEUMATOID FACTOR QUANT 5.1 IU/ML (<14)
[2024-02-09 13:12] LABS: ANTINUCLEAR ANTIBODIES DIRECT Negative (Negative)
== END ==
LOC: M WUC 14:59
PROVIDERS: ATTEND Orthopaedic Surgery
DX: M54.31 Sciatica, right side (principal)

== ENCOUNTER → 2024-12-30 | Outpatient (CLI) | payer OTHER ==
[2024-12-30 16:42] LABS: BASO % 0.4 % (0.0-1.0); EOS # 0.1 10^3/uL (0.0-0.5); EOS % 1.5 % (0.0-3.0); HEMATOCRIT 43.7 % (42.0-52.0); HEMOGLOBIN 14.8 g/dl (13.5-17.5); LYMPH # 1.5 10^3/uL (1.5-5.0); LYMPH % 22.5 % (24.0-44.0); MEAN CORPUSCULAR HEMOGLOBIN 32.6 pg (27.0-33.0); MEAN CORPUSCULAR HGB CONC 33.9 g/dl (32.0-36.5); MEAN CORPUSCULAR VOLUME 96.3 fl (80.0-96.0); MONO # 0.5 10^3/uL (0.0-0.8); MONO % 7.7 % (2.0-8.0); NEUTROPHILS # 4.6 10^3/uL (1.5-8.5); NEUTROPHILS % 67.5 % (36.0-66.0); PLATELET COUNT, AUTOMATED 237 10^3/uL (150-450); RED BLOOD COUNT 4.54 10^6/uL (4.30-6.10); WHITE BLOOD COUNT 6.8 10^3/uL (4.0-10.0)
[2024-12-30 16:49] LABS: HEMOGLOBIN A1c 5.1 % (4.0-6.0)
[2024-12-30 17:02] LABS: ALBUMIN 3.7 G/DL (3.2-5.2); ALKALINE PHOSPHATASE 69 U/L (40-129); ALT/SGPT 21 U/L (7.0-40); AST/SGOT 26 U/L (<34); BILIRUBIN,TOTAL 1.2 MG/DL (0.3-1.2); BLOOD UREA NITROGEN 22 MG/DL (9-23); CALCIUM LEVEL 8.7 MG/DL (8.3-10.6); CARBON DIOXIDE LEVEL 28 MMOL/L (20-31); CHLORIDE LEVEL 106 MMOL/L (98-107); CHOLESTEROL LEVEL 168 MG/DL (<200); CHOLESTEROL RISK RATIO 2.83 (<5); CREATININE FOR GFR 0.78 MG/DL (0.70-1.30); GLOMERULAR FILTRATION RATE > 60.0 (>49); GLUCOSE, FASTING 84 MG/DL (74-106); HDL CHOLESTEROL 59.3 MG/DL (>40); LDL CHOLESTEROL 92.1 MG/DL (<100); NON-HDL-C 108.7 MG/DL; POTASSIUM SERUM 4.3 MMOL/L (3.5-5.1); SODIUM LEVEL 141 MMOL/L (136-145); TRIGLYCERIDES LEVEL 83 MG/DL (<150)
== END ==
LOC: M WUC 11:23
PROVIDERS: ATTEND Family Medicine
DX: Z00.00 Encounter for general adult medical examination without abnormal findings (principal); Z12.5 Encounter for screening for malignant neoplasm of prostate
CPT/HCPCS: 36415; 80053; 80061; 83036; 85025; G0103

== ENCOUNTER → 2025-10-26 | Outpatient (CLI) | payer OTHER | LOC: M WUC 09:21 | PROVIDERS: ATTEND Family Medicine | DX: M47.812 Spondylosis without myelopathy or radiculopathy, cervical region (principal) ==